=== PATIENT | male | born 1990 | race American Indian/Alaskan Native ===

== ENCOUNTER 2020-06-13 15:44 | Inpatient (IN) | payer OTHER ==
[2020-06-13] MEDS ORDERED: ONDANSETRON 4 MG ODT TAB ONE (15:53)
--- NOTE | 2020-06-13 15:53 | Event Note ---
ED Screening Note Date of service: 06/13/20 ED Screening Note: c/o N/V x 2-3 days hx of DM, not currently taking metformin hx of gastroparesis no abdominal tenderness to palpation on exam states +coffee ground emesis, unsure of hematemesis POC glucose = >500 +chills This initial assessment/diagnostic orders/clinical plan/treatment(s) is/are subject to change based on patients health status, clinical progression and re- assessment by fellow clinical providers in the ED. Further treatment and workup at subsequent clinical providers discretion. Patient/guardian urged not to elope from the ED as their condition may be serious if not clinically assessed and managed. Initial orders include: labs
[2020-06-13] MEDS ORDERED: ONDANSETRON 4 MG ODT TAB PO ONE (15:54)
[2020-06-13 16:22] LABS: Hematocrit 40.9 % (35.5-45.6); Hemoglobin 13.2 gm/dl (11.8-15.2); Mean Corpuscular HGB Conc 32 % (32-34); Mean Corpuscular Volume 74 fl (84-94); Platelet Count 371 K/mm3 (140-440); Red Cell Distribution Width 14.4 % (13.2-15.2)
[2020-06-13 16:38] LABS: Alanine Aminotransferase 19 units/L (7-56); Albumin 3.8 g/dL (3.9-5); BUN/Creatinine Ratio 25; Blood Urea Nitrogen 32 mg/dL (9-20); Calcium 10.2 mg/dL (8.4-10.2); Hemolysis Index 2
[2020-06-13 16:54] LABS: INR 1.13 (0.87-1.13)
[2020-06-13] MEDS ORDERED: INSULIN REGULAR, HUMAN 100 UNIT/ML 3ML VIAL IV ONE (17:16)
[2020-06-13] MEDS ORDERED: METOCLOPRAMIDE 10 MG/2 ML INJ IV ONE (17:16)
[2020-06-13] MEDS ORDERED: SODIUM CHLORIDE 0.9% 1000 ML 1,000 ML IV ONE (17:16)
[2020-06-13] MEDS ORDERED: SODIUM CHLORIDE 0.9% 1000 ML 2,000 ML IV ONE (17:16)
[2020-06-13] MEDS ORDERED: DEXTROSE 50% IN WATER (25GM) 50 ML SYRINGE IV PRN (17:17)
--- NOTE | 2020-06-13 17:24 | Emergency Department Report ---
ED General Adult HPI - General Chief complaint: Nausea/Vomiting/Diarrhea Stated complaint: HYPERGLYCEMIA PUI?: No Time Seen by Provider: 06/13/20 15:50 Source: patient, RN notes reviewed Mode of arrival: Ambulatory Limitations: No Limitations - History of Present Illness Initial comments: The patient was evaluated in the emergency department for symptoms described in the history of present illness. He/she was evaluated in the context of the global COVID-19 pandemic, which necessitated consideration that the patient might be at risk for infection with the virus that causes COVID-19. Institutional protocols and algorithms that pertain to the evaluation of patients at risk for COVID-19 are in a state of rapid change based on information released by regulatory bodies including the CDC and federal and state organizations. These policies and algorithms were followed during the patient's care in the emergency department. Please note that these policies, procedures and recommendations changed on a rapid basis. The patient is a 29-year-old gentleman. He is not known to myself previously. He has a history of obesity, diabetes, and gastroparesis. He moved here from [place] approximately 6 months ago. He does not have a local primary care doctor. He presents to the ER with a complaint of "my gastroparesis is acting up." He describes pain with nausea, vomiting, malaise, weakness and fatigue, present for the past 2 to 3 days. He denies headache, neck pain, chest pain, abdominal pain, he has mild shortness of breath, he has nausea, but vomiting has resolved, he reports that he is constipated, and he also reports a lack of energy. He states he is felt like this at least 3 times in the past. He was given nausea medication prior to my personal arrival,/evaluation, which he states improved his symptoms. -: Gradual, days(s) Consistency: constant Improves with: medication Worsens with: eating - Related Data Allergies Allergy/AdvReac Type Severity Reaction Status Date / Time No Known Allergies Allergy Unverified 06/13/20 15:53 ED Review of Systems ROS: Stated complaint: HYPERGLYCEMIA Other details as noted in HPI Constitutional: malaise, weakness. denies: diaphoresis, fever Eyes: denies: vision change ENT: denies: epistaxis Respiratory: denies: cough Cardiovascular: denies: chest pain Gastrointestinal: nausea, vomiting, constipation. denies: abdominal pain, diarrhea Genitourinary: denies: dysuria Musculoskeletal: denies: back pain Skin: denies: lesions Neurological: weakness ED Past Medical Hx - Past Medical History Previous Medical History?: Yes Hx Diabetes: Yes - Surgical History Past Surgical History?: No ED Physical Exam - General Limitations: No Limitations General appearance: alert, in no apparent distress, obese - Head Head exam: Present: atraumatic, normocephalic - Eye Eye exam: Present: normal appearance, EOMI. Absent: nystagmus - ENT ENT exam: Present: normal orophraynx, mucous membranes dry, normal external ear exam - Neck Neck exam: Present: normal inspection, full ROM. Absent: tenderness, meningismus - Respiratory Respiratory exam: Present: normal lung sounds bilaterally. Absent: respiratory distress, wheezes, rales, rhonchi, stridor, decreased breath sounds - Cardiovascular Cardiovascular Exam: Present: normal rhythm, tachycardia, normal heart sounds. Absent: systolic murmur, diastolic murmur, rubs, gallop - GI/Abdominal GI/Abdominal exam: Present: soft. Absent: distended, tenderness, guarding, rebound, rigid, pulsatile mass - Rectal Rectal exam: Present: deferred - Extremities Exam Extremities exam: Present: normal inspection, full ROM, other (2+ pulses noted in the bilateral upper and lower extremities. There is no palpable cord. negative Homans sign. Muscular compartments are soft. The pelvis is stable.). Absent: pedal edema, joint swelling, calf tenderness - Back Exam Back exam: Present: normal inspection, full ROM. Absent: tenderness, CVA tenderness (R), CVA tenderness (L), paraspinal tenderness, vertebral tenderness - Neurological Exam Neurological exam: Present: alert, oriented X3, normal gait, other (No facial droop. Tongue midline. Extraocular movements intact bilaterally. Facial sensation intact to light touch in V1, V2, V3 distribution bilaterally. 5 and a 5 strength in 4 extremities. Sensation intact to light touch in 4 extremities.). Absent: motor sensory deficit - Skin Skin exam: Present: warm, dry, intact, normal color. Absent: rash ED Course Vital Signs 06/13/20 17:40 Pulse Rate 131 H Respiratory 16 Rate Blood Pressure 139/91 [Right] O2 Sat by Pulse 99 Oximetry ED Medical Decision Making - Lab Data Result diagrams: 06/13/20 16:00 06/13/20 16:00 Lab Results 06/13/20 06/13/20 06/13/20 Range/Units 16:00 16:00 16:00 WBC 22.7 H (4.5-11.0) K/mm3 RBC 5.50 H (3.65-5.03) M/mm3 Hgb 13.2 (11.8-15.2) gm/dl Hct 40.9 (35.5-45.6) % MCV 74 L (84-94) fl MCH 24 L (28-32) pg MCHC 32 (32-34) % RDW 14.4 (13.2-15.2) % Plt Count 371 (140-440) K/mm3 PT 14.7 (12.2-14.9) Sec. INR 1.13 (0.87-1.13) APTT 28.0 (24.2-36.6) Sec. VBG pH (7.320-7.420) Sodium 135 L (137-145) mmol/L Potassium 4.5 (3.6-5.0) mmol/L Chloride 87.4 L (98-107) mmol/L Carbon Dioxide 14 L (22-30) mmol/L Anion Gap 38 mmol/L BUN 32 H (9-20) mg/dL Creatinine 1.3 (0.8-1.3) mg/dL Estimated GFR > 60 ml/min BUN/Creatinine Ratio 25 % Glucose 778 H* (75-100) mg/dL Calcium 10.2 (8.4-10.2) mg/dL Total Bilirubin 0.40 (0.1-1.2) mg/dL AST 9 (5-40) units/L ALT 19 (7-56) units/L Alkaline Phosphatase 210 H (35-129) units/L Total Protein 9.3 H (6.3-8.2) g/dL Albumin 3.8 L (3.9-5) g/dL Albumin/Globulin Ratio 0.7 % 06/13/20 Range/Units 16:00 WBC (4.5-11.0) K/mm3 RBC (3.65-5.03) M/mm3 Hgb (11.8-15.2) gm/dl Hct (35.5-45.6) % MCV (84-94) fl MCH (28-32) pg MCHC (32-34) % RDW (13.2-15.2) % Plt Count (140-440) K/mm3 PT (12.2-14.9) Sec. INR (0.87-1.13) APTT (24.2-36.6) Sec. VBG pH 7.340 (7.320-7.420) Sodium (137-145) mmol/L Potassium (3.6-5.0) mmol/L Chloride (98-107) mmol/L Carbon Dioxide (22-30) mmol/L Anion Gap mmol/L BUN (9-20) mg/dL Creatinine (0.8-1.3) mg/dL Estimated GFR ml/min BUN/Creatinine Ratio % Glucose (75-100) mg/dL Calcium (8.4-10.2) mg/dL Total Bilirubin (0.1-1.2) mg/dL AST (5-40) units/L ALT (7-56) units/L Alkaline Phosphatase (35-129) units/L Total Protein (6.3-8.2) g/dL Albumin (3.9-5) g/dL Albumin/Globulin Ratio % Vital Signs 06/13/20 17:40 Pulse Rate 131 H Respiratory 16 Rate Blood Pressure 139/91 [Right] O2 Sat by Pulse 99 Oximetry - EKG Data -: EKG Interpreted by Pa EKG shows normal: sinus rhythm Rate: tachycardia - EKG Data When compared to previous EKG there are: previous EKG unavailable 06/13/20 17:27 Sinus rhythm, tachycardia, 129 bpm, normal axis, high left ventricular voltage, QTC is prolonged, the EKG is abnormal, the EKG is not a STEMI. There is no prior EKG available for comparison - Radiology Data Radiology results: pending, report reviewed, image reviewed X-ray of the chest is negative for acute findings. - Medical Decision Making Differential diagnosis, including but not limited to: Dehydration, diabetic ketoacidosis, hyperosmolar state, gastroparesis, electrolyte derangement Assessment and plan: 29-year-old gentleman with known history of diabetes, gastroparesis, obesity, unknown hemoglobin A1c, presenting with tachycardia, tachypnea, dry mucous membranes, hyperglycemia, and anion gap acidosis, suggestive of diabetic ketoacidosis. Leukocytosis is appreciated, abdomen soft and benign, without rebound, guarding or peritoneal signs. Denies cough, fever, loss of taste, loss of smell, and dysuria, do not suspect invasive bacterial illness. I have appreciated the patient rules in for systemic inflammatory response syndrome. However, we do not suspect invasive bacterial illness at this time, his leukocytosis and abnormal vital signs are likely a stress reaction to his underlying metabolic crisis. He was given a cup of ice water which he was able to drink without difficulty. He meets criteria for hospitalization secondary to his acute diabetic ketoacido sis metabolic crisis. Start IV fluids, obtain EKG, x-ray of the chest, initiate insulin drip. Patient is amenable to hospitalization. Dr Daren Salinas to admit/ assume care Critical Care Time: Yes Critical care time in (mins) excluding proc time.: 35 Critical care attestation.: If time is entered above; I have spent that time in minutes in the direct care of this critically ill patient, excluding procedure time. ED Disposition Clinical Impression: DKA (diabetic ketoacidoses), Dehydration, Obesity, Noncompliance Disposition: DC-09 OP ADMIT IP TO THIS HOSP Is pt being admited?: Yes Does the pt Need Aspirin: No Condition: Serious Instructions: Diabetic Ketoacidosis (ED)
--- NOTE | 2020-06-13 17:24 | History and Physical Report ---
History of Present Illness Chief complaint: I feel sick History of present illness: 29 YO Male with DM complicated by Gastroparesis, Noncompliance presents to ED for evaluation. Patient states that he has been "feeling sick" over the past 2 to 3 days with worsening symptoms over the past 1 day. Patient denies noncom pliance with antihyperglycemic medication. Patient acknowledges nausea, multiple episodes of vomiting, weakness, polydipsia, polyuria. Patient transported to [facility] via private vehicle for further care and evaluation of the aforementioned symptoms. Patient seen and evaluated in the emergency departm ent. All lab and imaging studies reviewed. Patient found to have clinical symptoms as well as lab findings consistent with diabetic ketoacidosis, systemic laboratories response syndrome, as well as metabolic acidosis. Patient admitted to ICU and initiated on DKA protocol. Patient also treated with empiric IV antibiotic dose x1. Patient denies fever, chills, chest pain, palpitations, productive cough, skin rash, recent ill contacts, or known exposure to COVID-19. No prior admission for review. All medication listed at time of admission has been reconciled. Past History Past Medical History: diabetes Past Surgical History: No surgical history, Other (Reviewed) Social history: single. denies: smoking, alcohol abuse, prescription drug abuse Family history: diabetes, hypertension Medications and Allergies Allergies Allergy/AdvReac Type Severity Reaction Status Date / Time No Known Allergies Allergy Unverified 06/13/20 15:53 Active Meds: Active Medications Dextrose (D50w (25gm) Syringe) 0 ml IV Q30MIN PRN; Protocol PRN Reason: Hypoglycemia Sodium Chloride (Nacl 0.9% 1000 Ml) 1,000 mls @ 999 mls/hr IV BOLUS ONE Stop: 06/13/20 18:16 Insulin Human Regular 100 (units/ Sodium Chloride) 100 mls @ 1 mls/hr IV TITR CORBY; Protocol Potassium Chloride/Dextrose/Sod Cl (D5w/0.45% Nacl/Kcl 20 Meq) 20 meq in 1,000 mls @ 125 mls/hr IV DIRECT CORBY Sodium Chloride (Sodium Chloride Flush Syringe 10 Ml) 10 ml IV PRN NR Stop: 06/13/20 23:59 Review of Systems Constitutional: no weight loss, no fever Ears, nose, mouth and throat: no ear pain, no tinnitis, no nose pain, no sinus pressure Cardiovascular: no chest pain, no palpitations, no edema, no syncope, no shortness of breath Gastrointestinal: nausea, vomiting, no abdominal pain, no constipation, no change in bowel habits, no hematemesis, no coffee ground emesis Genitourinary Male: no hematuria, no flank pain, no discharge, no urinary frequency, no urinary hesitancy Rectal: no pain, no incontinence, no bleeding Musculoskeletal: no neck stiffness, no neck pain, no shooting arm pain, no arm numbness/tingling Integumentary: no rash, no pruritis, no redness, no sores, no jaundice Neurological: no head injury, no paralysis, no weakness, no syncope, no tremors Psychiatric: no anxiety, no change in sleep habits, no sleep disturbances, no hypersomnia, no suicidal ideation Endocrine: excessive thirst, polydipsia, polyuria, high blood sugars, no excessive sweating, no weight change Hematologic/Lymphatic: no easy bruising, no easy bleeding Allergic/Immunologic: no urticaria, no allergic rhinitis, no wheezing Exam - Constitutional General appearance: Present: mild distress - EENT Eyes: Present: PERRL ENT: hearing intact, clear oral mucosa, other (Oral mucosa dry) - Neck Neck: Present: supple, normal ROM - Respiratory Respiratory effort: normal Respiratory: bilateral: CTA - Cardiovascular Rhythm: other (Tachycardia) Heart Sounds: Present: S1 & S2. Absent: rub, click - Extremities Extremities: pulses symmetrical, No edema Peripheral Pulses: within normal limits - Abdominal General gastrointestinal: Present: soft, non-tender, non-distended, normal bowel sounds Male genitourinary: Present: normal - Integumentary Integumentary: Present: dry, clammy, decreased turgor - Musculoskeletal Musculoskeletal: generalized weakness - Psychiatric Psychiatric: appropriate mood/affect, intact judgment & insight - Neurologic Neurologic: CNII-XII intact, moves all extremities Results - Labs CBC & Chem 7: 06/13/20 16:00 06/13/20 19:04 Labs: Abnormal lab results 06/13/20 06/13/20 Range/Units 16:00 16:00 WBC 22.7 H (4.5-11.0) K/mm3 RBC 5.50 H (3.65-5.03) M/mm3 MCV 74 L (84-94) fl MCH 24 L (28-32) pg Sodium 135 L (137-145) mmol/L Chloride 87.4 L (98-107) mmol/L Carbon Dioxide 14 L (22-30) mmol/L BUN 32 H (9-20) mg/dL Glucose 778 H* (75-100) mg/dL Alkaline Phosphatase 210 H (35-129) units/L Total Protein 9.3 H (6.3-8.2) g/dL Albumin 3.8 L (3.9-5) g/dL Assessment and Plan - Patient Problems (1) DKA (diabetic ketoacidoses) Current Visit: No Status: Acute Qualifiers: Diabetes mellitus type: type 1 Plan to address problem: DKA protocol: Admit to ICU, insulin drip, IV fluid resuscitation therapy, monitor urine output every shift, serial BMP to monitor anion gap, potassium repletion as per protocol: Monitor urine output every shift. (2) Metabolic acidosis Current Visit: Yes Status: Acute Plan to address problem: IV fluid resuscitation therapy, IV bicarbonate therapy, supportive care, BMP, repeat BMP in a.m. (3) Obesity hypoventilation syndrome Current Visit: Yes Status: Acute Plan to address problem: Supplemental oxygen, pulse oximetry, nebulizer therapy, balanced diet, increase physical activity at discharge, outpatient pulmonary follow-up for sleep study (4) Systemic inflammatory response syndrome Current Visit: Yes Status: Acute Plan to address problem: Empiric IV antibiotic therapy x1 dose, CBC, CMP, treat DKA, repeat CBC in a.m. No source of infection identified. (5) Noncompliance Current Visit: No Status: Acute Plan to address problem: patient counseled. Patient acknowledges understanding increased risk of worsening symptoms, medical complications, and even if future noncompliance. (6) DVT prophylaxis Current Visit: Yes Status: Acute Plan to address problem: SCD to bilateral lower extremities while in bed, prophylactic anticoagulation
[2020-06-13] MEDS ORDERED: SODIUM BICARB 8.4% 50 MEQ/50 ML SYRINGE IV SCH (17:30)
[2020-06-13 17:34] LABS: Total Cells Counted 100
[2020-06-13 17:35] LABS: Anisocytosis Few; Basophils % (Manual) 0 % (0.0-1.8); Eosinophils % (Manual) 0 % (0.0-4.3); Hypochromasia 1+
[2020-06-13 17:56] LABS: Bilirubin,Urine NEG (Negative); Blood,Urine SM (Negative); Color,Urine Yellow (Yellow); WBC,Urine < 1.0 /HPF (0.0-6.0)
--- NOTE | 2020-06-13 17:58 | XRay Report ---
CHEST 1 VIEW 06/13/2020 4:45 PM INDICATION / CLINICAL INFORMATION: Weakness, DKA, dyspnea. COMPARISON: None available. FINDINGS: SUPPORT DEVICES: None. HEART / MEDIASTINUM: No significant abnormality. LUNGS / PLEURA: No significant pulmonary or pleural abnormality. No pneumothorax. ADDITIONAL FINDINGS: No significant additional findings. IMPRESSION: 1. No acute abnormality of the chest. Signer Name: Jmua Butt MD Signed: 06/13/2020 5:54 PM Workstation Name: [id number]
[2020-06-13] MEDS ORDERED: D5W/0.45% NACL/KCL 20 MEQ 20 MEQ/1,000 ML BAG IV SCH (18:00)
[2020-06-13 18:12] LABS: BUN/Creatinine Ratio 25; Blood Urea Nitrogen 33 mg/dL (9-20); Calcium 10.2 mg/dL (8.4-10.2); Hemolysis Index 4
[2020-06-13] MEDS: INSULIN REGULAR, HUMAN 100 UNITS in SODIUM CHLORIDE 0.9% 99 ML IV SCH (18:53)
[2020-06-13 19:35] LABS: BUN/Creatinine Ratio 26; Blood Urea Nitrogen 31 mg/dL (9-20); Calcium 9.6 mg/dL (8.4-10.2); Hemolysis Index 17
[2020-06-13] MEDS ORDERED: SODIUM CHLORIDE 0.9% 1000 ML 1,000 ML ONE (21:09)
[2020-06-13 21:54] LABS: BUN/Creatinine Ratio 28; Blood Urea Nitrogen 31 mg/dL (9-20); Calcium 9.8 mg/dL (8.4-10.2); Hemolysis Index 12
[2020-06-13] MEDS: HEPARIN 5,000 UNIT/1 ML VIAL SUB-Q SCH (22:50)
[2020-06-13] MEDS ORDERED: LORazepam 2 MG/ML VIAL IM PRN (22:54)
[2020-06-13] MEDS: SODIUM CHLORIDE 0.9% 1000 ML 1,000 ML IV SCH (23:20)
[2020-06-13] MEDS ORDERED: ONDANSETRON 4 MG/2 ML INJ IV ONE (23:20)
[2020-06-14] MEDS: NICOTINE 21 MG/24 HR PATCH TD SCH ×2 (00:23→09:05)
[2020-06-14 01:09] LABS: BUN/Creatinine Ratio 31; Blood Urea Nitrogen 31 mg/dL (9-20); Calcium 9.4 mg/dL (8.4-10.2); Hemolysis Index 2
[2020-06-14] MEDS: INSULIN REGULAR, HUMAN 100 UNITS in SODIUM CHLORIDE 0.9% 99 ML IV SCH (06:15)
[2020-06-14] MEDS: SODIUM CHLORIDE 0.9% 1000 ML 1,000 ML IV SCH (06:16)
[2020-06-14 06:47] LABS: BUN/Creatinine Ratio 31; Blood Urea Nitrogen 31 mg/dL (9-20); Calcium 9.6 mg/dL (8.4-10.2); Hemolysis Index 0
[2020-06-14] MEDS: ONDANSETRON 4 MG/2 ML INJ IV PRN (08:18)
--- NOTE | 2020-06-14 09:00 | Progress Note ---
Assessment and Plan Assessment and plan: -- DKA (diabetic ketoacidoses) Current Visit: No Status: Acute Plan to address problem: Continue DKA pathway , insulin drip , IV fluids Continue n.p.o. status Anion gap 21, closely monitor Will start diet once anion gap is completely closed -- Metabolic acidosis Current Visit: Yes Status: Acute Plan to address problem: IV fluid resuscitation therapy, IV bicarbonate therapy, Closely monitor --Hyponatremia; pseudohyponatremia; Current Visit: Yes Status: Acute Plan to address problem: present on admission, secondary to severe hyper glycemia Significantly improved, closely monitor electrolytes --Morbid obesity BMI 42.3 Current Visit: Yes Status: Acute Plan to address problem: Patient needs nutrition consult Lifestyle changes, dietary modification Exercise as tolerated and weight reduction Patient would benefit from outpatient bariatric surgical consultation For weight reduction program when medically stable --Systemic inflammatory response syndrome Current Visit: Yes Status: Acute Plan to address problem: Continue empiric antibiotics, follow cultures --Medical noncompliance Current Visit: No Status: Acute Plan to address problem: patient counseled. Strongly advised to comply with medications diet and follow- up visits Patient has social and financial issues. Case management to assist with DC planning -- DVT prophylaxis Current Visit: Yes Status: Acute Plan to address problem: SCD and heparin subcu History Interval history: I have seen and examined the patient in the ICU this morning Patient's chart and medications reviewed Admitted with DKA, on DKA pathway insulin drip Patient's blood sugars are reasonable level, anion gap still high Continue current management Patient feels thirsty, wants some food Vital signs noted Hospitalist Physical - Constitutional Vitals: Temp Pulse Resp BP Pulse Ox 98.2 F 133 H 20 149/98 94 06/14/20 04:00 06/14/20 05:41 06/14/20 05:41 06/14/20 06:01 06/14/20 06:01 General appearance: Present: mild distress, well-nourished, obese (Morbidly obese) - EENT Eyes: Present: PERRL, EOM intact - Neck Neck: Present: supple, normal ROM - Respiratory Respiratory effort: normal Respiratory: bilateral: diminished, negative: rales, rhonchi, wheezing - Cardiovascular Rhythm: regular Heart Sounds: Present: S1 & S2 - Extremities Extremities: no ischemia, No edema - Abdominal General gastrointestinal: soft, non-tender, non-distended, normal bowel sounds - Integumentary Integumentary: Present: clear, warm - Psychiatric Psychiatric: appropriate mood/affect, cooperative - Neurologic Neurologic: CNII-XII intact, moves all extremities Results - Labs CBC & Chem 7: 06/13/20 16:00 06/14/20 09:42 Labs: Laboratory Last Values WBC 22.7 K/mm3 (4.5-11.0) H 06/13/20 16:00 RBC 5.50 M/mm3 (3.65-5.03) H 06/13/20 16:00 Hgb 13.2 gm/dl (11.8-15.2) 06/13/20 16:00 Hct 40.9 % (35.5-45.6) 06/13/20 16:00 MCV 74 fl (84-94) L 06/13/20 16:00 MCH 24 pg (28-32) L 06/13/20 16:00 MCHC 32 % (32-34) 06/13/20 16:00 RDW 14.4 % (13.2-15.2) 06/13/20 16:00 Plt Count 371 K/mm3 (140-440) 06/13/20 16:00 Add Manual Diff Complete 06/13/20 16:00 Total Counted 100 06/13/20 16:00 Seg Neuts % (Manual) 86.0 % (40.0-70.0) H 06/13/20 16:00 Band Neutrophils % 0 % 06/13/20 16:00 Lymphocytes % (Manual) 6.0 % (13.4-35.0) L 06/13/20 16:00 Reactive Lymphs % (Man) 0 % 06/13/20 16:00 Monocytes % (Manual) 8.0 % (0.0-7.3) H 06/13/20 16:00 Eosinophils % (Manual) 0 % (0.0-4.3) 06/13/20 16:00 Basophils % (Manual) 0 % (0.0-1.8) 06/13/20 16:00 Metamyelocytes % 0 % 06/13/20 16:00 Myelocytes % 0 % 06/13/20 16:00 Promyelocytes % 0 % 06/13/20 16:00 Blast Cells % 0 % 06/13/20 16:00 Nucleated RBC % Not Reportable 06/13/20 16:00 Seg Neutrophils # Man 19.5 K/mm3 (1.8-7.7) H 06/13/20 16:00 Band Neutrophils # 0.0 K/mm3 06/13/20 16:00 Lymphocytes # (Manual) 1.4 K/mm3 (1.2-5.4) 06/13/20 16:00 Abs React Lymphs (Man) 0.0 K/mm3 06/13/20 16:00 Monocytes # (Manual) 1.8 K/mm3 (0.0-0.8) H 06/13/20 16:00 Eosinophils # (Manual) 0.0 K/mm3 (0.0-0.4) 06/13/20 16:00 Basophils # (Manual) 0.0 K/mm3 (0.0-0.1) 06/13/20 16:00 Metamyelocytes # 0.0 K/mm3 06/13/20 16:00 Myelocytes # 0.0 K/mm3 06/13/20 16:00 Promyelocytes # 0.0 K/mm3 06/13/20 16:00 Blast Cells # 0.0 K/mm3 06/13/20 16:00 WBC Morphology Not Reportable 06/13/20 16:00 Hypersegmented Neuts Not Reportable 06/13/20 16:00 Hyposegmented Neuts Not Reportable 06/13/20 16:00 Hypogranular Neuts Not Reportable 06/13/20 16:00 Smudge Cells Not Reportable 06/13/20 16:00 Toxic Granulation Not Reportable 06/13/20 16:00 Toxic Vacuolation Not Reportable 06/13/20 16:00 Dohle Bodies Not Reportable 06/13/20 16:00 Pelger-Huet Anomaly Not Reportable 06/13/20 16:00 Nancy Rods Not Reportable 06/13/20 16:00 Platelet Estimate Not Reportable 06/13/20 16:00 Clumped Platelets Not Reportable 06/13/20 16:00 Plt Clumps, EDTA Not Reportable 06/13/20 16:00 Large Platelets Not Reportable 06/13/20 16:00 Giant Platelets Not Reportable 06/13/20 16:00 Platelet Satelliting Not Reportable 06/13/20 16:00 Plt Morphology Comment Not Reportable 06/13/20 16:00 RBC Morphology Not Reportable 06/13/20 16:00 Dimorphic RBCs Not Reportable 06/13/20 16:00 Polychromasia Not Reportable 06/13/20 16:00 Hypochromasia 1+ 06/13/20 16:00 Poikilocytosis Not Reportable 06/13/20 16:00 Anisocytosis Few 06/13/20 16:00 Microcytosis Not Reportable 06/13/20 16:00 Macrocytosis Not Reportable 06/13/20 16:00 Spherocytes Not Reportable 06/13/20 16:00 Pappenheimer Bodies Not Reportable 06/13/20 16:00 Sickle Cells Not Reportable 06/13/20 16:00 Target Cells Not Reportable 06/13/20 16:00 Tear Drop Cells Not Reportable 06/13/20 16:00 Ovalocytes Not Reportable 06/13/20 16:00 Helmet Cells Not Reportable 06/13/20 16:00 [place] Bodies Not Reportable 06/13/20 16:00 [place] Rings Not Reportable 06/13/20 16:00 [place] Cells Not Reportable 06/13/20 16:00 Bite Cells Not Reportable 06/13/20 16:00 Crenated Cell Not Reportable 06/13/20 16:00 Elliptocytes Not Reportable 06/13/20 16:00 Acanthocytes (Spur) Not Reportable 06/13/20 16:00 Rouleaux Not Reportable 06/13/20 16:00 Hemoglobin C Crystals Not Reportable 06/13/20 16:00 Schistocytes Not Reportable 06/13/20 16:00 Malaria parasites Not Reportable 06/13/20 16:00 Jamar Bodies Not Reportable 06/13/20 16:00 Hem Pathologist Commnt No 06/13/20 16:00 PT 14.7 Sec. (12.2-14.9) 06/13/20 16:00 INR 1.13 (0.87-1.13) 06/13/20 16:00 APTT 28.0 Sec. (24.2-36.6) 06/13/20 16:00 VBG pH 7.340 (7.320-7.420) 06/13/20 16:00 Sodium 145 mmol/L (137-145) 06/14/20 04:39 Potassium 4.0 mmol/L (3.6-5.0) 06/14/20 04:39 Chloride 103.3 mmol/L (98-107) 06/14/20 04:39 Carbon Dioxide 25 mmol/L (22-30) 06/14/20 04:39 Anion Gap 21 mmol/L 06/14/20 04:39 BUN 31 mg/dL (9-20) H 06/14/20 04:39 Creatinine 1.0 mg/dL (0.8-1.3) 06/14/20 04:39 Estimated GFR > 60 ml/min 06/14/20 04:39 BUN/Creatinine Ratio 31 % 06/14/20 04:39 Glucose 288 mg/dL (75-100) H 06/14/20 04:39 POC Glucose 253 (70-105) H 06/14/20 07:52 Calcium 9.6 mg/dL (8.4-10.2) 06/14/20 04:39 Phosphorus 4.90 mg/dL (2.5-4.5) H 06/13/20 17:28 Magnesium 2.50 mg/dL (1.7-2.3) H 06/13/20 17:28 Magnesium 2.60 mg/dL (1.7-2.3) H 06/13/20 17:28 Total Bilirubin 0.40 mg/dL (0.1-1.2) 06/13/20 16:00 AST 9 units/L (5-40) 06/13/20 16:00 ALT 19 units/L (7-56) 06/13/20 16:00 Alkaline Phosphatase 210 units/L (35-129) H 06/13/20 16:00 Total Creatine Kinase 30 units/L (55-170) L 06/13/20 17:28 Total Protein 9.3 g/dL (6.3-8.2) H 06/13/20 16:00 Albumin 3.8 g/dL (3.9-5) L 06/13/20 16:00 Albumin/Globulin Ratio 0.7 % 06/13/20 16:00 TSH 0.726 mlU/mL (0.270-4.200) 06/13/20 17:28 Urine Color Yellow (Yellow) 06/13/20 Unknown Urine Turbidity Clear (Clear) 06/13/20 Unknown Urine pH 5.0 (5.0-7.0) 06/13/20 Unknown Ur Specific [place] 1.024 (1.003-1.030) 06/13/20 Unknown Urine Protein 30 mg/dl mg/dL (Negative) 06/13/20 Unknown Urine Glucose (UA) >=500 mg/dL (Negative) 06/13/20 Unknown Urine Ketones 80 mg/dL (Negative) 06/13/20 Unknown Urine Blood Sm (Negative) 06/13/20 Unknown Urine Nitrite Neg (Negative) 06/13/20 Unknown Urine Bilirubin Neg (Negative) 06/13/20 Unknown Urine Urobilinogen 2.0 mg/dL (<2.0) 06/13/20 Unknown Ur Leukocyte Esterase Neg (Negative) 06/13/20 Unknown Urine WBC (Auto) < 1.0 /HPF (0.0-6.0) 06/13/20 Unknown Urine RBC (Auto) 1.0 /HPF (0.0-6.0) 06/13/20 Unknown U Epithel Cells (Auto) < 1.0 /HPF (0-13.0) 06/13/20 Unknown Active Medications - Current Medications Current Medications: Generic Name Dose Route Start Last Admin Trade Name Freq PRN Reason Stop Dose Admin Dextrose 0 ml 06/13/20 17:17 D50w (25gm) Syringe IV Q30MIN PRN Hypoglycemia Protocol Heparin Sodium (Porcine) 5,000 unit 06/13/20 22:00 06/13/20 22:50 Heparin SUB-Q 5,000 unit Q12HR CORBY Administration Insulin Human Regular 100 100 mls @ 1 mls/hr 06/13/20 18:00 06/14/20 08:00 units/ Sodium Chloride IV 5 units/hr TITR CORBY 5 mls/hr Titration Protocol 1 UNITS/HR Potassium Chloride/Dextrose/Sod Cl 20 meq in 1,000 mls @ 125 mls/hr 06/13/20 18:00 D5w/0.45% Nacl/Kcl 20 Meq IV DIRECT CORBY Sodium Chloride 1,000 mls @ 150 mls/hr 06/13/20 17:30 06/14/20 06:16 Nacl 0.9% 1000 Ml IV 150 mls/hr DIRECT CORBY Administration Lorazepam 1 mg 06/13/20 22:54 Ativan IM Q4H PRN Agitation, anxiety Nicotine 21 mg 06/13/20 23:30 06/14/20 00:23 Habitrol TD 21 mg QDAY CORBY Administration Ondansetron HCl 4 mg 06/14/20 08:03 06/14/20 08:18 Zofran IV 4 mg Q8H PRN Administration Nausea And Vomiting Sodium Chloride 10 ml 06/13/20 22:00 06/13/20 22:52 Sodium Chloride Flush Syringe 10 Ml IV 10 ml BID CORBY Administration Sodium Chloride 10 ml 06/13/20 17:30 Sodium Chloride Flush Syringe 10 Ml IV PRN PRN LINE FLUSH
[2020-06-14] MEDS: HEPARIN 5,000 UNIT/1 ML VIAL SUB-Q SCH ×2 (09:05→21:48)
[2020-06-14 10:42] LABS: BUN/Creatinine Ratio 32; Blood Urea Nitrogen 32 mg/dL (9-20); Calcium 9.5 mg/dL (8.4-10.2); Hemolysis Index 2
[2020-06-14] MEDS: INSULIN NPH/REGULAR 70/30 INJ SUB-Q SCH ×3 (12:23→21:18)
[2020-06-14] MEDS: INSULIN LISPRO 100 UNIT/ML VIAL 3 mL SUB-Q SCH ×3 (12:23→21:52)
[2020-06-14] MEDS: hydrALAZINE 25 MG TAB PO SCH ×2 (14:39→21:47)
--- NOTE | 2020-06-14 15:13 | Event Note ---
Date: 06/14/20 Patient feels slightly better, blood sugars well controlled Anion gap closed, acidosis improved, patient has no new symptoms Start ADA diet, transition to long-acting insulin, DC insulin drip Diabetic education, nutrition education. Transfer out of ICU in 1 to 2 hours if stable
[2020-06-14] MEDS: NIFEdipine XL 30 MG TAB PO SCH (21:48)
[2020-06-15] MEDS: hydrALAZINE 25 MG TAB PO SCH ×3 (06:22→21:08)
[2020-06-15] MEDS: INSULIN NPH/REGULAR 70/30 INJ SUB-Q SCH ×2 (08:56→17:37)
[2020-06-15] MEDS: INSULIN LISPRO 100 UNIT/ML VIAL 3 mL SUB-Q SCH ×4 (08:56→23:02)
[2020-06-15] MEDS ORDERED: INSULIN NPH/REGULAR 70/30 INJ SUB-Q SCH (09:42)
[2020-06-15] MEDS: NICOTINE 21 MG/24 HR PATCH TD SCH (09:46)
[2020-06-15] MEDS: HEPARIN 5,000 UNIT/1 ML VIAL SUB-Q SCH ×3 (09:46→21:14)
[2020-06-15] MEDS: NIFEdipine XL 30 MG TAB PO SCH ×2 (09:47→21:06)
--- NOTE | 2020-06-15 09:48 | Progress Note ---
Assessment and Plan Assessment and plan: --Insulin-dependent diabetes mellitus; Current Visit: No Status: Acute . Plan to address problem: uncontrolled , increase Novolin 70/30 to 30 units twice a day Accu-Chek sliding scale coverage ADA diet Hemoglobin A1c 16.3 Diabetic education, nutrition education Supportive care --Medical noncompliance; Current Visit: No Status: Acute . Plan to address problem: Patient has been consuming a lot of sugary fruit juices since last night He reports that he is not able to tolerate the water Blood sugars are very high uncontrolled due to sugary drinks Strongly advised to comply with ADA diet --Right thigh abscess; Patient has never complained to any physician about this abscess Nurse found on her evaluation and requested wound care Wound care nurse consulted the surgery start IV antibiotics, surgery evaluated the patient Scheduled for I&D tomorrow -- s/p DKA (diabetic ketoacidoses) Current Visit: No Status: Acute . Plan to address problem: Improved -- Metabolic acidosis Current Visit: Yes Status: Acute Plan to address problem: IV fluid resuscitation therapy, IV bicarbonate therapy, Closely monitor --Hyponatremia; pseudohyponatremia; Current Visit: Yes Status: Acute Plan to address problem: present on admission, secondary to severe hyper glycemia Significantly improved, closely monitor electrolytes --Morbid obesity BMI 42.3 Current Visit: Yes Status: Acute Plan to address problem: Patient needs nutrition consult Lifestyle changes, dietary modification Exercise as tolerated and weight reduction Patient would benefit from outpatient bariatric surgical consultation For weight reduction program when medically stable --Systemic inflammatory response syndrome Current Visit: Yes Status: Acute Plan to address problem: Continue empiric antibiotics, follow cultures --Medical noncompliance Current Visit: No Status: Acute Plan to address problem: patient counseled. Strongly advised to comply with medications diet and follow- up visits Patient has social and financial issues. Case management to assist with DC planning -- DVT prophylaxis Current Visit: Yes Status: Acute Plan to address problem: SCD and heparin subcu Closely monitor the patient and adjust management as needed History Interval history: I have seen and examined the patient at the bedside this morning Patient's chart and medications reviewed Patient sugars are uncontrolled, as patient is consuming a lot of sugary fruit drinks He reports that he is not able to tolerate water with severe epigastric burning and pain Patient reports that he is able to tolerate fruit juices. And had a few drinks since morning Blood sugars are in upper 300s and 400s Patient strictly advised to comply with ADA diet No new complaints Vital signs noted Hospitalist Physical - Constitutional Vitals: Temp Pulse Resp BP Pulse Ox 97.3 F L 111 H 18 139/89 97 06/15/20 05:30 06/15/20 06:22 06/15/20 05:30 06/15/20 06:22 06/15/20 05:30 General appearance: Present: no acute distress, well-nourished, obese (Morbidly obese) - EENT Eyes: Present: PERRL, EOM intact - Neck Neck: Present: supple, normal ROM - Respiratory Respiratory effort: normal Respiratory: bilateral: diminished, negative: rales, rhonchi, wheezing - Cardiovascular Rhythm: regular Heart Sounds: Present: S1 & S2 - Extremities Extremities: no ischemia, No edema Extremity abnormal: other (Right medial thigh abscess) - Abdominal General gastrointestinal: soft, non-tender, non-distended, normal bowel sounds - Integumentary Integumentary: Present: clear, warm - Psychiatric Psychiatric: appropriate mood/affect, cooperative - Neurologic Neurologic: moves all extremities Results - Labs CBC & Chem 7: 06/13/20 16:00 06/14/20 09:42 Labs: Laboratory Last Values WBC 22.7 K/mm3 (4.5-11.0) H 06/13/20 16:00 RBC 5.50 M/mm3 (3.65-5.03) H 06/13/20 16:00 Hgb 13.2 gm/dl (11.8-15.2) 06/13/20 16:00 Hct 40.9 % (35.5-45.6) 06/13/20 16:00 MCV 74 fl (84-94) L 06/13/20 16:00 MCH 24 pg (28-32) L 06/13/20 16:00 MCHC 32 % (32-34) 06/13/20 16:00 RDW 14.4 % (13.2-15.2) 06/13/20 16:00 Plt Count 371 K/mm3 (140-440) 06/13/20 16:00 Add Manual Diff Complete 06/13/20 16:00 Total Counted 100 06/13/20 16:00 Seg Neuts % (Manual) 86.0 % (40.0-70.0) H 06/13/20 16:00 Band Neutrophils % 0 % 06/13/20 16:00 Lymphocytes % (Manual) 6.0 % (13.4-35.0) L 06/13/20 16:00 Reactive Lymphs % (Man) 0 % 06/13/20 16:00 Monocytes % (Manual) 8.0 % (0.0-7.3) H 06/13/20 16:00 Eosinophils % (Manual) 0 % (0.0-4.3) 06/13/20 16:00 Basophils % (Manual) 0 % (0.0-1.8) 06/13/20 16:00 Metamyelocytes % 0 % 06/13/20 16:00 Myelocytes % 0 % 06/13/20 16:00 Promyelocytes % 0 % 06/13/20 16:00 Blast Cells % 0 % 06/13/20 16:00 Nucleated RBC % Not Reportable 06/13/20 16:00 Seg Neutrophils # Man 19.5 K/mm3 (1.8-7.7) H 06/13/20 16:00 Band Neutrophils # 0.0 K/mm3 06/13/20 16:00 Lymphocytes # (Manual) 1.4 K/mm3 (1.2-5.4) 06/13/20 16:00 Abs React Lymphs (Man) 0.0 K/mm3 06/13/20 16:00 Monocytes # (Manual) 1.8 K/mm3 (0.0-0.8) H 06/13/20 16:00 Eosinophils # (Manual) 0.0 K/mm3 (0.0-0.4) 06/13/20 16:00 Basophils # (Manual) 0.0 K/mm3 (0.0-0.1) 06/13/20 16:00 Metamyelocytes # 0.0 K/mm3 06/13/20 16:00 Myelocytes # 0.0 K/mm3 06/13/20 16:00 Promyelocytes # 0.0 K/mm3 06/13/20 16:00 Blast Cells # 0.0 K/mm3 06/13/20 16:00 WBC Morphology Not Reportable 06/13/20 16:00 Hypersegmented Neuts Not Reportable 06/13/20 16:00 Hyposegmented Neuts Not Reportable 06/13/20 16:00 Hypogranular Neuts Not Reportable 06/13/20 16:00 Smudge Cells Not Reportable 06/13/20 16:00 Toxic Granulation Not Reportable 06/13/20 16:00 Toxic Vacuolation Not Reportable 06/13/20 16:00 Dohle Bodies Not Reportable 06/13/20 16:00 Pelger-Huet Anomaly Not Reportable 06/13/20 16:00 Nancy Rods Not Reportable 06/13/20 16:00 Platelet Estimate Not Reportable 06/13/20 16:00 Clumped Platelets Not Reportable 06/13/20 16:00 Plt Clumps, EDTA Not Reportable 06/13/20 16:00 Large Platelets Not Reportable 06/13/20 16:00 Giant Platelets Not Reportable 06/13/20 16:00 Platelet Satelliting Not Reportable 06/13/20 16:00 Plt Morphology Comment Not Reportable 06/13/20 16:00 RBC Morphology Not Reportable 06/13/20 16:00 Dimorphic RBCs Not Reportable 06/13/20 16:00 Polychromasia Not Reportable 06/13/20 16:00 Hypochromasia 1+ 06/13/20 16:00 Poikilocytosis Not Reportable 06/13/20 16:00 Anisocytosis Few 06/13/20 16:00 Microcytosis Not Reportable 06/13/20 16:00 Macrocytosis Not Reportable 06/13/20 16:00 Spherocytes Not Reportable 06/13/20 16:00 Pappenheimer Bodies Not Reportable 06/13/20 16:00 Sickle Cells Not Reportable 06/13/20 16:00 Target Cells Not Reportable 06/13/20 16:00 Tear Drop Cells Not Reportable 06/13/20 16:00 Ovalocytes Not Reportable 06/13/20 16:00 Helmet Cells Not Reportable 06/13/20 16:00 [place] Bodies Not Reportable 06/13/20 16:00 [place] Rings Not Reportable 06/13/20 16:00 [place] Cells Not Reportable 06/13/20 16:00 Bite Cells Not Reportable 06/13/20 16:00 Crenated Cell Not Reportable 06/13/20 16:00 Elliptocytes Not Reportable 06/13/20 16:00 Acanthocytes (Spur) Not Reportable 06/13/20 16:00 Rouleaux Not Reportable 06/13/20 16:00 Hemoglobin C Crystals Not Reportable 06/13/20 16:00 Schistocytes Not Reportable 06/13/20 16:00 Malaria parasites Not Reportable 06/13/20 16:00 Jamar Bodies Not Reportable 06/13/20 16:00 Hem Pathologist Commnt No 06/13/20 16:00 PT 14.7 Sec. (12.2-14.9) 06/13/20 16:00 INR 1.13 (0.87-1.13) 06/13/20 16:00 APTT 28.0 Sec. (24.2-36.6) 06/13/20 16:00 VBG pH 7.340 (7.320-7.420) 06/13/20 16:00 Sodium 146 mmol/L (137-145) H 06/14/20 09:42 Potassium 4.0 mmol/L (3.6-5.0) 06/14/20 09:42 Chloride 106.6 mmol/L (98-107) 06/14/20 09:42 Carbon Dioxide 25 mmol/L (22-30) 06/14/20 09:42 Anion Gap 18 mmol/L 06/14/20 09:42 BUN 32 mg/dL (9-20) H 06/14/20 09:42 Creatinine 1.0 mg/dL (0.8-1.3) 06/14/20 09:42 Estimated GFR > 60 ml/min 06/14/20 09:42 BUN/Creatinine Ratio 32 % 06/14/20 09:42 Glucose 252 mg/dL (75-100) H 06/14/20 09:42 POC Glucose 495 mg/dL (70-105) H 06/15/20 08:24 Hemoglobin A1c 16.3 % (4-6) H 06/13/20 17:28 Calcium 9.5 mg/dL (8.4-10.2) 06/14/20 09:42 Phosphorus 4.90 mg/dL (2.5-4.5) H 06/13/20 17:28 Magnesium 2.50 mg/dL (1.7-2.3) H 06/13/20 17:28 Magnesium 2.60 mg/dL (1.7-2.3) H 06/13/20 17:28 Total Bilirubin 0.40 mg/dL (0.1-1.2) 06/13/20 16:00 AST 9 units/L (5-40) 06/13/20 16:00 ALT 19 units/L (7-56) 06/13/20 16:00 Alkaline Phosphatase 210 units/L (35-129) H 06/13/20 16:00 Total Creatine Kinase 30 units/L (55-170) L 06/13/20 17:28 Total Protein 9.3 g/dL (6.3-8.2) H 06/13/20 16:00 Albumin 3.8 g/dL (3.9-5) L 06/13/20 16:00 Albumin/Globulin Ratio 0.7 % 06/13/20 16:00 TSH 0.726 mlU/mL (0.270-4.200) 06/13/20 17:28 Urine Color Yellow (Yellow) 06/13/20 Unknown Urine Turbidity Clear (Clear) 06/13/20 Unknown Urine pH 5.0 (5.0-7.0) 06/13/20 Unknown Ur Specific [place] 1.024 (1.003-1.030) 06/13/20 Unknown Urine Protein 30 mg/dl mg/dL (Negative) 06/13/20 Unknown Urine Glucose (UA) >=500 mg/dL (Negative) 06/13/20 Unknown Urine Ketones 80 mg/dL (Negative) 06/13/20 Unknown Urine Blood Sm (Negative) 06/13/20 Unknown Urine Nitrite Neg (Negative) 06/13/20 Unknown Urine Bilirubin Neg (Negative) 06/13/20 Unknown Urine Urobilinogen 2.0 mg/dL (<2.0) 06/13/20 Unknown Ur Leukocyte Esterase Neg (Negative) 06/13/20 Unknown Urine WBC (Auto) < 1.0 /HPF (0.0-6.0) 06/13/20 Unknown Urine RBC (Auto) 1.0 /HPF (0.0-6.0) 06/13/20 Unknown U Epithel Cells (Auto) < 1.0 /HPF (0-13.0) 06/13/20 Unknown Palomares/IV: IV Catheter Type [Left Forearm INT / Saline Lock ] Active Medications - Current Medications Current Medications: Generic Name Dose Route Start Last Admin Trade Name Freq PRN Reason Stop Dose Admin Dextrose 0 ml 06/13/20 17:17 D50w (25gm) Syringe IV Q30MIN PRN Hypoglycemia Protocol Heparin Sodium (Porcine) 5,000 unit 06/13/20 22:00 06/14/20 21:48 Heparin SUB-Q 5,000 unit Q12HR CORBY Administration Hydralazine HCl 50 mg 06/14/20 15:00 06/15/20 06:22 Apresoline PO 50 mg Q8HR CORBY Administration Sodium Chloride 1,000 mls @ 150 mls/hr 06/13/20 17:30 06/14/20 06:16 Nacl 0.9% 1000 Ml IV 150 mls/hr DIRECT CORBY Administration Insulin Human Isoph/Insulin Regular 10 unit 06/15/20 09:41 Humulin 70/30 SUB-Q 06/15/20 09:42 ONCE ONE Insulin Human Isoph/Insulin Regular 30 unit 06/15/20 09:43 Humulin 70/30 SUB-Q BIDDIAB CORBY Insulin Human Lispro 0 unit 06/14/20 12:00 06/15/20 08:56 Humalog SUB-Q 8 unit ACHS CORBY Administration Protocol Labetalol HCl 10 mg 06/14/20 18:03 Labetalol IV Q4H PRN Hypertension Lorazepam 1 mg 06/13/20 22:54 Ativan IM Q4H PRN Agitation, anxiety Nicotine 21 mg 06/13/20 23:30 06/14/20 09:05 Habitrol TD 21 mg QDAY CORBY Administration Nifedipine 30 mg 06/14/20 22:00 06/14/20 21:48 Procardia Xl PO 30 mg Q12HR CORBY Administration Ondansetron HCl 4 mg 06/14/20 08:03 06/14/20 08:18 Zofran IV 4 mg Q8H PRN Administration Nausea And Vomiting Sodium Chloride 10 ml 06/13/20 22:00 06/14/20 21:52 Sodium Chloride Flush Syringe 10 Ml IV 10 ml BID CORBY Administration Sodium Chloride 10 ml 06/13/20 17:30 Sodium Chloride Flush Syringe 10 Ml IV PRN PRN LINE FLUSH
[2020-06-15] MEDS ORDERED: INSULIN NPH/REGULAR 70/30 INJ SUB-Q NR (10:00)
--- NOTE | 2020-06-15 10:55 | Consultation ---
History of Present Illness Consult date: 06/15/02 - History of present illness History of present illness: 29 yo diabetic male with a right thigh abscess. Past History Past Medical History: diabetes Past Surgical History: No surgical history, Other (Reviewed) Social history: single. denies: smoking, alcohol abuse, prescription drug abuse Family history: diabetes, hypertension Medications and Allergies Allergies Allergy/AdvReac Type Severity Reaction Status Date / Time No Known Allergies Allergy Unverified 06/13/20 15:53 Home Medications Medication Instructions Recorded Confirmed Last Taken Type Metformin HCl 500 mg PO BID 06/14/20 06/14/20 Unknown History Active Meds: Active Medications Dextrose (D50w (25gm) Syringe) 0 ml IV Q30MIN PRN; Protocol PRN Reason: Hypoglycemia Heparin Sodium (Porcine) (Heparin) 5,000 unit SUB-Q Q12HR [facility] Last Admin: 06/15/20 09:46 Dose: 5,000 unit Documented by: Hydralazine HCl (Apresoline) 50 mg PO Q8HR [facility] Last Admin: 06/15/20 06:22 Dose: 50 mg Documented by: Sodium Chloride (Nacl 0.9% 1000 Ml) 1,000 mls @ 150 mls/hr IV DIRECT [facility] Last Admin: 06/14/20 06:16 Dose: 150 mls/hr Documented by: Insulin Human Isoph/Insulin Regular (Humulin 70/30) 10 unit SUB-Q ONCE NR Stop: 06/15/20 12:00 Last Admin: 06/15/20 10:32 Dose: 10 unit Documented by: Insulin Human Isoph/Insulin Regular (Humulin 70/30) 30 unit SUB-Q BIDDIAB [facility] Insulin Human Lispro (Humalog) 0 unit SUB-Q ACHS [facility]; Protocol Last Admin: 06/15/20 08:56 Dose: 8 unit Documented by: Labetalol HCl (Labetalol) 10 mg IV Q4H PRN PRN Reason: Hypertension Lorazepam (Ativan) 1 mg IM Q4H PRN PRN Reason: Agitation, anxiety Nicotine (Habitrol) 21 mg TD QDAY [facility] Last Admin: 06/15/20 09:46 Dose: Not Given Documented by: Nifedipine (Procardia Xl) 30 mg PO Q12HR [facility] Last Admin: 06/15/20 09:47 Dose: 30 mg Documented by: Ondansetron HCl (Zofran) 4 mg IV Q8H PRN PRN Reason: Nausea And Vomiting Last Admin: 06/14/20 08:18 Dose: 4 mg Documented by: Sodium Chloride (Sodium Chloride Flush Syringe 10 Ml) 10 ml IV BID [facility] Last Admin: 06/15/20 09:47 Dose: 10 ml Documented by: Sodium Chloride (Sodium Chloride Flush Syringe 10 Ml) 10 ml IV PRN PRN PRN Reason: LINE FLUSH Review of Systems All systems: negative (none) Exam Vital Signs Temp Pulse Resp BP Pulse Ox 98.1 F 136 H 18 167/111 96 06/13/20 15:55 06/13/20 15:55 06/13/20 15:55 06/13/20 15:55 06/13/20 15:55 - General physical appearance Positive: well developed, well nourished, no distress - Eyes Positive: PERRL, normal occular movement - ENT Positive: normal pinna, normal nares, normal mucosa, no hearing loss, no congestion - Neck Positive: no masses, no bruits, trachea midline, no venous distension - Respiratory Positive: normal expansion, normal respiratory effort, clear to auscultation - Cardiovascular Rhythm: regular Heart Sounds: Present: S1 & S2. Absent: rub, click - Extremities Extremities: no ischemia, pulses symmetrical, No edema - Breasts Breasts: normal, no mass, no skin changes - Abdomen Abdomen: Present: soft, bowel sounds normal. Absent: tender, distended Hernia: none - Genitourinary Male Genitourinary: normal Female Genitourinary: normal - Integumentary other (There is a 4.5 X 4.5 cm abscess of the right medial thigh. The skin overlying the central portion of the abscess is necrotic and weeping purulent fluid.) - Neurologic Neurologic: alert and oriented to time, place and person, motor strength and sensation are grossly intact - Musculoskeletal normal gait, normal posture - Psychiatric Psychiatric: appropriate mood/affect, intact judgment & insight Results - Labs 06/13/20 16:00 06/14/20 09:42 Abnormal lab results 06/13/20 06/14/20 06/14/20 Range/Units 17:28 11:12 12:10 POC Glucose 235 H 249 H (70-105) mg/dL Hemoglobin A1c 16.3 H (4-6) % 06/14/20 06/14/2006/15/20 Range/Units 16:06 21:20 08:24 POC Glucose 398 H 327 H 495 H (70-105) mg/dL Hemoglobin A1c (4-6) % Diabetes panel 06/13/20 Range/Units 17:28 Hemoglobin A1c 16.3 H (4-6) % Assessment and Plan - Patient Problems (1) Abscess of right thigh Current Visit: Yes Status: Acute Plan to address problem: 1) NPO after MN 2) I&D tomorrow 3) Strict management of DM 4) Broad spectrum IV antibiotics
[2020-06-15] MEDS: ONDANSETRON 4 MG/2 ML INJ IV PRN (20:21)
[2020-06-15] MEDS: SODIUM CHLORIDE 0.9% 1000 ML 1,000 ML IV SCH (20:50)
[2020-06-15] MEDS: VANCOMYCIN 2,000 MG in SODIUM CHLORIDE 0.9% 500 ML 500 ML IV SCH (20:50)
[2020-06-16] MEDS ORDERED: LIDOCAINE-MPF (1%) 10 MG/1 ML VIAL 5 ML INFILTRATI ONE
[2020-06-16] MEDS: PIPERACIL/TAZOBACTA 4.5/NS 100 4.5 GM/100 ML VIAL IV SCH ×4 (03:43→17:42)
[2020-06-16] MEDS: VANCOMYCIN 2,000 MG in SODIUM CHLORIDE 0.9% 500 ML 500 ML IV SCH ×3 (03:44→22:53)
[2020-06-16] MEDS: hydrALAZINE 25 MG TAB PO SCH ×3 (06:46→22:55)
[2020-06-16] MEDS: INSULIN NPH/REGULAR 70/30 INJ SUB-Q SCH ×2 (08:33→17:42)
[2020-06-16] MEDS: INSULIN LISPRO 100 UNIT/ML VIAL 3 mL SUB-Q SCH ×4 (08:36→23:28)
[2020-06-16] MEDS: NICOTINE 21 MG/24 HR PATCH TD SCH (09:56)
--- NOTE | 2020-06-16 09:57 | Progress Note ---
Assessment and Plan Assessment and plan: --Right thigh abscess; Surgery and wound care evaluated the patient Scheduled for incision drainage procedure Continue antibiotics vancomycin and surgery evaluated the patient Scheduled for I&D today, follow cultures --Sepsis due to right thigh abscess Current Visit: No Status: Acute . Plan to address problem: Leukocytosis, tachycardia, abscess Continue antibiotics, follow cultures --Insulin-dependent diabetes mellitus; Current Visit: No Status: Acute . Plan to address problem: uncontrolled , increase Novolin 70/30 to 30 units twice a day Accu-Chek sliding scale coverage ADA diet Hemoglobin A1c 16.3 Diabetic education, nutrition education Supportive care --Medical noncompliance; Current Visit: No Status: Acute . Plan to address problem: Patient has been consuming a lot of sugary fruit juices since last night He reports that he is not able to tolerate the water Blood sugars are very high uncontrolled due to sugary drinks Strongly advised to comply with ADA diet -- s/p DKA (diabetic ketoacidoses) Current Visit: No Status: Acute . Plan to address problem: Improved -- Metabolic acidosis Current Visit: Yes Status: Acute Plan to address problem: IV fluid resuscitation therapy, IV bicarbonate therapy, Closely monitor --Hyponatremia; pseudohyponatremia; Current Visit: Yes Status: Acute Plan to address problem: Resolved, mild hypernatremia Change IV fluids to half-normal saline --Morbid obesity BMI 42.3 Current Visit: Yes Status: Acute Plan to address problem: Patient needs nutrition consult Lifestyle changes, dietary modification Exercise as tolerated and weight reduction Patient would benefit from outpatient bariatric surgical consultation For weight reduction program when medically stable --Medical noncompliance Current Visit: No Status: Acute Plan to address problem: patient counseled. Strongly advised to comply with medications diet and follow- up visits Patient has social and financial issues. Case management to assist with DC planning -- DVT prophylaxis Current Visit: Yes Status: Acute Plan to address problem: SCD and heparin subcu Closely monitor the patient and adjust management as needed History Interval history: I have seen and examined the patient in his room this morning Patient's chart and current medications reviewed Patient is scheduled for incision and drainage of the thigh abscess per Dr. Taylor Patient is receiving IV antibiotics Complains of mild discomfort and pain vital signs noted Hospitalist Physical - Constitutional Vitals: Temp Pulse Resp BP Pulse Ox 98.9 F 106 H 20 142/101 96 06/16/20 06:54 06/16/20 06:54 06/16/20 06:54 06/16/20 06:54 06/16/20 06:54 General appearance: Present: no acute distress, well-nourished, obese (Morbidly obese) - EENT Eyes: Present: PERRL, EOM intact - Neck Neck: Present: supple, normal ROM - Respiratory Respiratory effort: normal Respiratory: bilateral: diminished, negative: rales, rhonchi, wheezing - Cardiovascular Rhythm: regular Heart Sounds: Present: S1 & S2 - Extremities Extremities: no ischemia, abnormal (Right thigh abscess) - Abdominal General gastrointestinal: soft, non-tender, non-distended, normal bowel sounds - Integumentary Integumentary: Present: clear, warm - Psychiatric Psychiatric: appropriate mood/affect, cooperative - Neurologic Neurologic: CNII-XII intact, moves all extremities Results - Labs CBC & Chem 7: 06/16/20 11:39 06/14/20 09:42 Labs: Laboratory Last Values WBC 22.7 K/mm3 (4.5-11.0) H 06/13/20 16:00 RBC 5.50 M/mm3 (3.65-5.03) H 06/13/20 16:00 Hgb 13.2 gm/dl (11.8-15.2) 06/13/20 16:00 Hct 40.9 % (35.5-45.6) 06/13/20 16:00 MCV 74 fl (84-94) L 06/13/20 16:00 MCH 24 pg (28-32) L 06/13/20 16:00 MCHC 32 % (32-34) 06/13/20 16:00 RDW 14.4 % (13.2-15.2) 06/13/20 16:00 Plt Count 371 K/mm3 (140-440) 06/13/20 16:00 Add Manual Diff Complete 06/13/20 16:00 Total Counted 100 06/13/20 16:00 Seg Neuts % (Manual) 86.0 % (40.0-70.0) H 06/13/20 16:00 Band Neutrophils % 0 % 06/13/20 16:00 Lymphocytes % (Manual) 6.0 % (13.4-35.0) L 06/13/20 16:00 Reactive Lymphs % (Man) 0 % 06/13/20 16:00 Monocytes % (Manual) 8.0 % (0.0-7.3) H 06/13/20 16:00 Eosinophils % (Manual) 0 % (0.0-4.3) 06/13/20 16:00 Basophils % (Manual) 0 % (0.0-1.8) 06/13/20 16:00 Metamyelocytes % 0 % 06/13/20 16:00 Myelocytes % 0 % 06/13/20 16:00 Promyelocytes % 0 % 06/13/20 16:00 Blast Cells % 0 % 06/13/20 16:00 Nucleated RBC % Not Reportable 06/13/20 16:00 Seg Neutrophils # Man 19.5 K/mm3 (1.8-7.7) H 06/13/20 16:00 Band Neutrophils # 0.0 K/mm3 06/13/20 16:00 Lymphocytes # (Manual) 1.4 K/mm3 (1.2-5.4) 06/13/20 16:00 Abs React Lymphs (Man) 0.0 K/mm3 06/13/20 16:00 Monocytes # (Manual) 1.8 K/mm3 (0.0-0.8) H 06/13/20 16:00 Eosinophils # (Manual) 0.0 K/mm3 (0.0-0.4) 06/13/20 16:00 Basophils # (Manual) 0.0 K/mm3 (0.0-0.1) 06/13/20 16:00 Metamyelocytes # 0.0 K/mm3 06/13/20 16:00 Myelocytes # 0.0 K/mm3 06/13/20 16:00 Promyelocytes # 0.0 K/mm3 06/13/20 16:00 Blast Cells # 0.0 K/mm3 06/13/20 16:00 WBC Morphology Not Reportable 06/13/20 16:00 Hypersegmented Neuts Not Reportable 06/13/20 16:00 Hyposegmented Neuts Not Reportable 06/13/20 16:00 Hypogranular Neuts Not Reportable 06/13/20 16:00 Smudge Cells Not Reportable 06/13/20 16:00 Toxic Granulation Not Reportable 06/13/20 16:00 Toxic Vacuolation Not Reportable 06/13/20 16:00 Dohle Bodies Not Reportable 06/13/20 16:00 Pelger-Huet Anomaly Not Reportable 06/13/20 16:00 Nancy Rods Not Reportable 06/13/20 16:00 Platelet Estimate Not Reportable 06/13/20 16:00 Clumped Platelets Not Reportable 06/13/20 16:00 Plt Clumps, EDTA Not Reportable 06/13/20 16:00 Large Platelets Not Reportable 06/13/20 16:00 Giant Platelets Not Reportable 06/13/20 16:00 Platelet Satelliting Not Reportable 06/13/20 16:00 Plt Morphology Comment Not Reportable 06/13/20 16:00 RBC Morphology Not Reportable 06/13/20 16:00 Dimorphic RBCs Not Reportable 06/13/20 16:00 Polychromasia Not Reportable 06/13/20 16:00 Hypochromasia 1+ 06/13/20 16:00 Poikilocytosis Not Reportable 06/13/20 16:00 Anisocytosis Few 06/13/20 16:00 Microcytosis Not Reportable 06/13/20 16:00 Macrocytosis Not Reportable 06/13/20 16:00 Spherocytes Not Reportable 06/13/20 16:00 Pappenheimer Bodies Not Reportable 06/13/20 16:00 Sickle Cells Not Reportable 06/13/20 16:00 Target Cells Not Reportable 06/13/20 16:00 Tear Drop Cells Not Reportable 06/13/20 16:00 Ovalocytes Not Reportable 06/13/20 16:00 Helmet Cells Not Reportable 06/13/20 16:00 [place] Bodies Not Reportable 06/13/20 16:00 [place] Rings Not Reportable 06/13/20 16:00 [place] Cells Not Reportable 06/13/20 16:00 Bite Cells Not Reportable 06/13/20 16:00 Crenated Cell Not Reportable 06/13/20 16:00 Elliptocytes Not Reportable 06/13/20 16:00 Acanthocytes (Spur) Not Reportable 06/13/20 16:00 Rouleaux Not Reportable 06/13/20 16:00 Hemoglobin C Crystals Not Reportable 06/13/20 16:00 Schistocytes Not Reportable 06/13/20 16:00 Malaria parasites Not Reportable 06/13/20 16:00 Jamar Bodies Not Reportable 06/13/20 16:00 Hem Pathologist Commnt No 06/13/20 16:00 PT 14.7 Sec. (12.2-14.9) 06/13/20 16:00 INR 1.13 (0.87-1.13) 06/13/20 16:00 APTT 28.0 Sec. (24.2-36.6) 06/13/20 16:00 VBG pH 7.340 (7.320-7.420) 06/13/20 16:00 Sodium 146 mmol/L (137-145) H 06/14/20 09:42 Potassium 4.0 mmol/L (3.6-5.0) 06/14/20 09:42 Chloride 106.6 mmol/L (98-107) 06/14/20 09:42 Carbon Dioxide 25 mmol/L (22-30) 06/14/20 09:42 Anion Gap 18 mmol/L 06/14/20 09:42 BUN 32 mg/dL (9-20) H 06/14/20 09:42 Creatinine 1.0 mg/dL (0.8-1.3) 06/14/20 09:42 Estimated GFR > 60 ml/min 06/14/20 09:42 BUN/Creatinine Ratio 32 % 06/14/20 09:42 Glucose 252 mg/dL (75-100) H 06/14/20 09:42 POC Glucose 284 mg/dL (70-105) H 06/16/20 07:58 Hemoglobin A1c 16.3 % (4-6) H 06/13/20 17:28 Calcium 9.5 mg/dL (8.4-10.2) 06/14/20 09:42 Phosphorus 4.90 mg/dL (2.5-4.5) H 06/13/20 17:28 Magnesium 2.50 mg/dL (1.7-2.3) H 06/13/20 17:28 Magnesium 2.60 mg/dL (1.7-2.3) H 06/13/20 17:28 Total Bilirubin 0.40 mg/dL (0.1-1.2) 06/13/20 16:00 AST 9 units/L (5-40) 06/13/20 16:00 ALT 19 units/L (7-56) 06/13/20 16:00 Alkaline Phosphatase 210 units/L (35-129) H 06/13/20 16:00 Total Creatine Kinase 30 units/L (55-170) L 06/13/20 17:28 Total Protein 9.3 g/dL (6.3-8.2) H 06/13/20 16:00 Albumin 3.8 g/dL (3.9-5) L 06/13/20 16:00 Albumin/Globulin Ratio 0.7 % 06/13/20 16:00 TSH 0.726 mlU/mL (0.270-4.200) 06/13/20 17:28 Urine Color Yellow (Yellow) 06/13/20 Unknown Urine Turbidity Clear (Clear) 06/13/20 Unknown Urine pH 5.0 (5.0-7.0) 06/13/20 Unknown Ur Specific [place] 1.024 (1.003-1.030) 06/13/20 Unknown Urine Protein 30 mg/dl mg/dL (Negative) 06/13/20 Unknown Urine Glucose (UA) >=500 mg/dL (Negative) 06/13/20 Unknown Urine Ketones 80 mg/dL (Negative) 06/13/20 Unknown Urine Blood Sm (Negative) 06/13/20 Unknown Urine Nitrite Neg (Negative) 06/13/20 Unknown Urine Bilirubin Neg (Negative) 06/13/20 Unknown Urine Urobilinogen 2.0 mg/dL (<2.0) 06/13/20 Unknown Ur Leukocyte Esterase Neg (Negative) 06/13/20 Unknown Urine WBC (Auto) < 1.0 /HPF (0.0-6.0) 06/13/20 Unknown Urine RBC (Auto) 1.0 /HPF (0.0-6.0) 06/13/20 Unknown U Epithel Cells (Auto) < 1.0 /HPF (0-13.0) 06/13/20 Unknown Microbiology: Microbiology 06/15/20 19:22 Peripheral/Venous Blood Culture - Preliminary Culture in Progress 06/15/20 19:22 Peripheral/Venous Blood Culture - Preliminary Culture in Progress Palomares/IV: Voiding Method Toilet IV Catheter Type [Left Forearm INT / Saline Lock ] Active Medications - Current Medications Current Medications: Generic Name Dose Route Start Last Admin Trade Name Freq PRN Reason Stop Dose Admin Dextrose 0 ml 06/13/20 17:17 D50w (25gm) Syringe IV Q30MIN PRN Hypoglycemia Protocol Heparin Sodium (Porcine) 5,000 unit 06/13/20 22:00 06/15/20 21:14 Heparin SUB-Q Not Given Q12HR [facility] Hydralazine HCl 50 mg 06/14/20 15:00 06/16/20 06:46 Apresoline PO Not Given Q8HR [facility] Sodium Chloride 1,000 mls @ 150 mls/hr 06/13/20 17:30 06/15/20 20:50 Nacl 0.9% 1000 Ml IV 150 mls/hr DIRECT [facility] Administration Piperacillin Sod/Tazobactam Sod 4.5 gm in 100 mls @ 200 mls/hr 06/15/20 18:00 06/16/20 03:45 Zosyn/Ns 4.5gm/100ml IV 200 mls/hr Q8H [facility] Administration Protocol Vancomycin HCl 2,000 mg/ 540 mls @ 250 mls/hr 06/15/20 20:00 06/16/20 03:44 Sodium Chloride IV 250 mls/hr Q8H [facility] Administration Insulin Human Isoph/Insulin Regular 30 unit 06/15/20 17:00 06/16/20 08:33 Humulin 70/30 SUB-Q Not Given BIDDIAB [facility] Insulin Human Lispro 0 unit 06/14/20 12:00 06/16/20 08:36 Humalog SUB-Q 4 unit ACHS [facility] Administration Protocol Labetalol HCl 10 mg 06/14/20 18:03 06/15/20 19:04 Labetalol IV 10 mg Q4H PRN Administration Hypertension Lorazepam 1 mg 06/13/20 22:54 Ativan IM Q4H PRN Agitation, anxiety Nicotine 21 mg 06/13/20 23:30 06/15/20 09:46 Habitrol TD Not Given QDAY [facility] Nifedipine 30 mg 06/14/20 22:00 06/15/20 21:06 Procardia Xl PO 30 mg Q12HR [facility] Administration Ondansetron HCl 4 mg 06/14/20 08:03 06/15/20 20:21 Zofran IV 4 mg Q8H PRN Administration Nausea And Vomiting Sodium Chloride 10 ml 06/13/20 22:00 06/15/20 21:06 Sodium Chloride Flush Syringe 10 Ml IV 10 ml BID [facility] Administration Sodium Chloride 10 ml 06/13/20 17:30 Sodium Chloride Flush Syringe 10 Ml IV PRN PRN LINE FLUSH
[2020-06-16] MEDS ORDERED: VANCOMYCIN/NS 1 GM/250 ML 1 GM/250 ML BAG IV SCH (10:00)
[2020-06-16] MEDS ORDERED: VANCOMYCIN PHARMACY TO DOSE IV SCH (10:00)
[2020-06-16] MEDS: HEPARIN 5,000 UNIT/1 ML VIAL SUB-Q SCH ×2 (10:05→22:54)
[2020-06-16] MEDS: NIFEdipine XL 30 MG TAB PO SCH ×2 (10:53→22:55)
[2020-06-16 12:28] LABS: Hematocrit 37.8 % (35.5-45.6); Hemoglobin 11.8 gm/dl (11.8-15.2); Mean Corpuscular HGB Conc 31 % (32-34); Mean Corpuscular Volume 74 fl (84-94); Platelet Count 379 K/mm3 (140-440); Red Blood Count 5.15 M/mm3 (3.65-5.03); Red Cell Distribution Width 14.3 % (13.2-15.2)
[2020-06-16] MEDS ORDERED: INSULIN LISPRO 100 UNIT/ML VIAL 3 mL SUB-Q ONE (13:00)
--- NOTE | 2020-06-16 13:13 | Anesthesia Day of Surgery ---
Anesthesia Day of Surgery - Day of Surgery Patient Examined: Yes Patient H&P Reviewed: Yes Patient is NPO: Yes
[2020-06-16] MEDS: SODIUM CHLORIDE 0.9% 1000 ML 1,000 ML IV SCH ×2 (13:15→15:07)
[2020-06-16] MEDS ORDERED: BUPIVACAINE/PF (0.25%) 2.5 MG/ML 30 ML VIAL INFILTRATI ONE ×2 (13:16→13:35)
[2020-06-16] MEDS ORDERED: LIDOCAINE (1%) 10 MG/1 ML VIAL 20 ML MDV ONE (13:16)
--- NOTE | 2020-06-16 13:16 | Anesthesia Consultation ---
Anesthesia Consult and Med Hx Date of service: 06/16/20 - Airway Anesthetic Teeth Evaluation: Chipped Mallampati Class: Class IV Intubation Access Assessment: Possibly Difficult - Pre-Operative Health Status ASA Pre-Surgery Classification: ASA3 Proposed Anesthetic Plan: MAC (Pt refuses GA) - Pulmonary Hx Smoking: Yes - Cardiovascular System Hx Hypertension: Yes - Gastrointestinal Hx Gastroesophageal Reflux Disease: Yes - Endocrine Hx Insulin Dependent Diabetes: Yes - Hematic Hx Sickle Cell Disease: No - Other Systems Hx Substance Use: Yes (MJ) Hx Obesity: Yes
[2020-06-16] MEDS ORDERED: SODIUM CHLORIDE 0.9% IRR 1,500 ML BOTTLE IR ONE (13:46)
--- NOTE | 2020-06-16 14:14 | Procedure Note ---
Date of procedure: 06/16/20 Pre-op diagnosis: Right thigh abscess Post-op diagnosis: same Procedure: I&D of right thigh abscess Description of procedure: Pt was placed supine on the OR table and frog legged. Right medial thigh was prepped and draped. Skin and SQ tissue about the u lcerated area were infiltrated with 4 ml of 0.25% Marcaine with epinephrine. The ulcerated area was then excised resulting in drainage of pus which was cultured. Additional Marcaine (6 ml) was injected over the unroofed areas of the abscess cavity. The abscess cavity was completely unroofed with the Bovie. Necrotic SQ tissue was excised with forceps and scissors. Wound was irrigated with warm saline. Wound was packed open with a dilute Betadine moistened Kerlix roll followed by an ABD and tape. Pt tolerated the procedure well. Anesthesia: local Surgeon: ANAYA NUNEZ Estimated blood loss: minimal Pathology: list (C&S) Specimen disposition: to lab Condition: stable Disposition: PACU
[2020-06-16 14:39] LABS: Band Neutrophils # (Manual) 0.4 K/mm3; Basophils % (Manual) 0 % (0.0-1.8); Eosinophils % (Manual) 0 % (0.0-4.3); Hypochromasia Few; Platelet Clumps Rare; Platelet Estimate Consistent w Auto; Total Cells Counted 100
--- NOTE | 2020-06-16 16:54 | Post Anesthesia Evaluation ---
- Post Anesthesia Evaluation Patient Participated: Yes Airway Patent: Yes Stable Respiratory Function: Yes Nausea/Vomiting: No Temp > 96.8F: Yes Pain Manageable: Yes Adequeate Hydration: Yes Anesthesia Complications: No Block Receding Appropriately: Not Applicable Patient on Ventilator: No Other Comments: Pt refused GA/Sedation. Anes was in the OR to monitor the patient and be available should he change his mind intraop.
[2020-06-17] MEDS: PIPERACIL/TAZOBACTA 4.5/NS 100 4.5 GM/100 ML VIAL IV SCH (01:09)
[2020-06-17] MEDS: ONDANSETRON 4 MG/2 ML INJ IV PRN (01:16)
[2020-06-17 05:31] LABS: Hematocrit 36.1 % (35.5-45.6); Hemoglobin 11.5 gm/dl (11.8-15.2); Mean Corpuscular HGB Conc 32 % (32-34); Mean Corpuscular Volume 73 fl (84-94); Platelet Count 364 K/mm3 (140-440); Red Blood Count 4.93 M/mm3 (3.65-5.03); Red Cell Distribution Width 13.8 % (13.2-15.2)
[2020-06-17 05:42] LABS: Calcium 8.9 mg/dL (8.4-10.2)
[2020-06-17] MEDS: hydrALAZINE 25 MG TAB PO SCH ×2 (05:52→14:47)
[2020-06-17] MEDS: VANCOMYCIN 2,000 MG in SODIUM CHLORIDE 0.9% 500 ML 500 ML IV SCH (05:53)
[2020-06-17 06:42] LABS: Band Neutrophils # (Manual) 0.6 K/mm3; Basophils % (Manual) 0 % (0.0-1.8); Total Cells Counted 100
[2020-06-17 06:43] LABS: Anisocytosis 1+; Hypochromasia 1+; Platelet Estimate Consistent w Auto; Toxic Granulation 1+
[2020-06-17] MEDS: NICOTINE 21 MG/24 HR PATCH TD SCH (09:44)
[2020-06-17] MEDS: NIFEdipine XL 30 MG TAB PO SCH (09:44)
[2020-06-17] MEDS: HEPARIN 5,000 UNIT/1 ML VIAL SUB-Q SCH (09:44)
[2020-06-17] MEDS: INSULIN LISPRO 100 UNIT/ML VIAL 3 mL SUB-Q SCH ×2 (09:44→12:36)
[2020-06-17] MEDS: INSULIN NPH/REGULAR 70/30 INJ SUB-Q SCH (09:44)
--- NOTE | 2020-06-17 10:25 | Progress Note ---
Assessment and Plan Assessment and plan: --Right thigh abscess; Surgery and wound care evaluated the patient S/p incision drainage and debridement 06/16/2020 Continue antibiotics vancomycin and Zosyn Follow cultures, wound care, surgery recommendations --Sepsis due to right thigh abscess Current Visit: No Status: Acute . Plan to address problem: Leukocytosis, tachycardia, abscess Continue antibiotics, follow cultures ID consult --Leukocytosis; secondary to sepsis, trending down Continue to treat with IV antibiotics and supportive care --Insulin-dependent diabetes mellitus; moderate control Current Visit: No Status: Acute . Plan to address problem: I will increase Novolin 70/30 dose to 35 units twice a day Accu-Chek sliding scale coverage ADA diet Hemoglobin A1c 16.3 Diabetic education, nutrition education Supportive care --Medical noncompliance; Current Visit: No Status: Acute . Plan to address problem: Patient has been consuming a lot of sugary fruit juices He reports that he is not able to tolerate the water Blood sugars are very high uncontrolled due to sugary drinks Strongly advised to comply with ADA diet -- s/p DKA (diabetic ketoacidoses) Current Visit: No Status: Acute . Plan to address problem: Improved -- Metabolic acidosis Current Visit: Yes Status: Acute Plan to address problem: IV fluid resuscitation therapy, IV bicarbonate therapy, Closely monitor --Hyponatremia; pseudohyponatremia; Current Visit: Yes Status: Acute Plan to address problem: Resolved, sodium levels within the range --Morbid obesity BMI 42.3 Current Visit: Yes Status: Acute Plan to address problem: Patient needs nutrition consult Lifestyle changes, dietary modification Exercise as tolerated and weight reduction Patient would benefit from outpatient bariatric surgical consultation For weight reduction program when medically stable --Medical noncompliance Current Visit: No Status: Acute Plan to address problem: patient counseled. Strongly advised to comply with medications diet and follow- up visits Patient has social and financial issues. Case management to assist with DC planning -- DVT prophylaxis Current Visit: Yes Status: Acute Plan to address problem: SCD and heparin subcu Closely monitor the patient and adjust management as needed Follow wound care surgeon, wound care recommendation Follow-up ID evaluation and recommendations Plan of care reviewed with the patient and his nurse History Interval history: I have seen and examined the patient at the bedside Patient's chart and medications reviewed Patient sugars are uncontrolled partly due to chronic noncompliance with medications Patient takes a lot of sugary fruit juices and due to sepsis [thigh abscess] Patient is anxious to go home Vital signs noted Hospitalist Physical - Constitutional Vitals: Temp Pulse Resp BP Pulse Ox 98.1 F 102 H 18 178/108 96 06/17/20 06:27 06/17/20 06:58 06/17/20 06:58 06/17/20 05:52 06/17/20 06:58 General appearance: Present: no acute distress, well-nourished, obese (Morbidly obese) - EENT Eyes: Present: PERRL, EOM intact - Neck Neck: Present: supple, normal ROM - Respiratory Respiratory effort: normal Respiratory: bilateral: diminished, negative: rales, rhonchi, wheezing - Cardiovascular Rhythm: regular Heart Sounds: Present: S1 & S2 - Extremities Extremities: no ischemia, abnormal (Thigh dressing in place) - Abdominal General gastrointestinal: soft, non-tender, non-distended, normal bowel sounds - Integumentary Integumentary: Present: clear, warm - Psychiatric Psychiatric: appropriate mood/affect, cooperative - Neurologic Neurologic: CNII-XII intact, moves all extremities Results - Labs CBC & Chem 7: 06/17/20 04:12 06/17/20 04:12 Labs: Laboratory Last Values WBC 12.6 K/mm3 (4.5-11.0) H 06/17/20 04:12 RBC 4.93 M/mm3 (3.65-5.03) 06/17/20 04:12 Hgb 11.5 gm/dl (11.8-15.2) L 06/17/20 04:12 Hct 36.1 % (35.5-45.6) 06/17/20 04:12 MCV 73 fl (84-94) L 06/17/20 04:12 MCH 23 pg (28-32) L 06/17/20 04:12 MCHC 32 % (32-34) 06/17/20 04:12 RDW 13.8 % (13.2-15.2) 06/17/20 04:12 Plt Count 364 K/mm3 (140-440) 06/17/20 04:12 Add Manual Diff Complete 06/17/20 04:12 Total Counted 100 06/17/20 04:12 Seg Neuts % (Manual) 73.0 % (40.0-70.0) H 06/17/20 04:12 Band Neutrophils % 5.0 % 06/17/20 04:12 Lymphocytes % (Manual) 14.0 % (13.4-35.0) 06/17/20 04:12 Reactive Lymphs % (Man) 0 % 06/17/20 04:12 Monocytes % (Manual) 7.0 % (0.0-7.3) 06/17/20 04:12 Eosinophils % (Manual) 1.0 % (0.0-4.3) 06/17/20 04:12 Basophils % (Manual) 0 % (0.0-1.8) 06/17/20 04:12 Metamyelocytes % 0 % 06/17/20 04:12 Myelocytes % 0 % 06/17/20 04:12 Promyelocytes % 0 % 06/17/20 04:12 Blast Cells % 0 % 06/17/20 04:12 Nucleated RBC % Not Reportable 06/17/20 04:12 Seg Neutrophils # Man 9.2 K/mm3 (1.8-7.7) H 06/17/20 04:12 Band Neutrophils # 0.6 K/mm3 06/17/20 04:12 Lymphocytes # (Manual) 1.8 K/mm3 (1.2-5.4) 06/17/20 04:12 Abs React Lymphs (Man) 0.0 K/mm3 06/17/20 04:12 Monocytes # (Manual) 0.9 K/mm3 (0.0-0.8) H 06/17/20 04:12 Eosinophils # (Manual) 0.1 K/mm3 (0.0-0.4) 06/17/20 04:12 Basophils # (Manual) 0.0 K/mm3 (0.0-0.1) 06/17/20 04:12 Metamyelocytes # 0.0 K/mm3 06/17/20 04:12 Myelocytes # 0.0 K/mm3 06/17/20 04:12 Promyelocytes # 0.0 K/mm3 06/17/20 04:12 Blast Cells # 0.0 K/mm3 06/17/20 04:12 WBC Morphology Not Reportable 06/17/20 04:12 Hypersegmented Neuts Not Reportable 06/17/20 04:12 Hyposegmented Neuts Not Reportable 06/17/20 04:12 Hypogranular Neuts Not Reportable 06/17/20 04:12 Smudge Cells Not Reportable 06/17/20 04:12 Toxic Granulation 1+ 06/17/20 04:12 Toxic Vacuolation Not Reportable 06/17/20 04:12 Dohle Bodies Not Reportable 06/17/20 04:12 Pelger-Huet Anomaly Not Reportable 06/17/20 04:12 Nancy Rods Not Reportable 06/17/20 04:12 Platelet Estimate Consistent w auto 06/17/20 04:12 Clumped Platelets Not Reportable 06/17/20 04:12 Plt Clumps, EDTA Not Reportable 06/17/20 04:12 Large Platelets Not Reportable 06/17/20 04:12 Giant Platelets Not Reportable 06/17/20 04:12 Platelet Satelliting Not Reportable 06/17/20 04:12 Plt Morphology Comment Not Reportable 06/17/20 04:12 RBC Morphology Not Reportable 06/17/20 04:12 Dimorphic RBCs Not Reportable 06/17/20 04:12 Polychromasia Not Reportable 06/17/20 04:12 Hypochromasia 1+ 06/17/20 04:12 Poikilocytosis Not Reportable 06/17/20 04:12 Anisocytosis 1+ 06/17/20 04:12 Microcytosis Not Reportable 06/17/20 04:12 Macrocytosis Not Reportable 06/17/20 04:12 Spherocytes Not Reportable 06/17/20 04:12 Pappenheimer Bodies Not Reportable 06/17/20 04:12 Sickle Cells Not Reportable 06/17/20 04:12 Target Cells Not Reportable 06/17/20 04:12 Tear Drop Cells Not Reportable 06/17/20 04:12 Ovalocytes Not Reportable 06/17/20 04:12 Helmet Cells Not Reportable 06/17/20 04:12 [place] Bodies Not Reportable 06/17/20 04:12 [place] Rings Not Reportable 06/17/20 04:12 [place] Cells Not Reportable 06/17/20 04:12 Bite Cells Not Reportable 06/17/20 04:12 Crenated Cell Not Reportable 06/17/20 04:12 Elliptocytes Not Reportable 06/17/20 04:12 Acanthocytes (Spur) Not Reportable 06/17/20 04:12 Rouleaux Not Reportable 06/17/20 04:12 Hemoglobin C Crystals Not Reportable 06/17/20 04:12 Schistocytes Not Reportable 06/17/20 04:12 Malaria parasites Not Reportable 06/17/20 04:12 Jamar Bodies Not Reportable 06/17/20 04:12 Hem Pathologist Commnt No 06/17/20 04:12 PT 14.7 Sec. (12.2-14.9) 06/13/20 16:00 INR 1.13 (0.87-1.13) 06/13/20 16:00 APTT 28.0 Sec. (24.2-36.6) 06/13/20 16:00 VBG pH 7.340 (7.320-7.420) 06/13/20 16:00 Sodium 137 mmol/L (137-145) D 06/17/20 04:12 Potassium 3.7 mmol/L (3.6-5.0) 06/17/20 04:12 Chloride 98.4 mmol/L (98-107) 06/17/20 04:12 Carbon Dioxide 23 mmol/L (22-30) 06/17/20 04:12 Anion Gap 19 mmol/L 06/17/20 04:12 BUN 21 mg/dL (9-20) H 06/17/20 04:12 Creatinine 2.6 mg/dL (0.8-1.3) H D 06/17/20 04:12 Estimated GFR 35 ml/min 06/17/20 04:12 BUN/Creatinine Ratio 8 % 06/17/20 04:12 Glucose 278 mg/dL (75-100) H 06/17/20 04:12 POC Glucose 318 mg/dL (70-105) H 06/17/20 07:52 Hemoglobin A1c 16.3 % (4-6) H 06/13/20 17:28 Calcium 8.9 mg/dL (8.4-10.2) 06/17/20 04:12 Phosphorus 4.90 mg/dL (2.5-4.5) H 06/13/20 17:28 Magnesium 2.50 mg/dL (1.7-2.3) H 06/13/20 17:28 Magnesium 2.60 mg/dL (1.7-2.3) H 06/13/20 17:28 Total Bilirubin 0.40 mg/dL (0.1-1.2) 06/13/20 16:00 AST 9 units/L (5-40) 06/13/20 16:00 ALT 19 units/L (7-56) 06/13/20 16:00 Alkaline Phosphatase 210 units/L (35-129) H 06/13/20 16:00 Total Creatine Kinase 30 units/L (55-170) L 06/13/20 17:28 Total Protein 9.3 g/dL (6.3-8.2) H 06/13/20 16:00 Albumin 3.8 g/dL (3.9-5) L 06/13/20 16:00 Albumin/Globulin Ratio 0.7 % 06/13/20 16:00 TSH 0.726 mlU/mL (0.270-4.200) 06/13/20 17:28 Urine Color Yellow (Yellow) 06/13/20 Unknown Urine Turbidity Clear (Clear) 06/13/20 Unknown Urine pH 5.0 (5.0-7.0) 06/13/20 Unknown Ur Specific [place] 1.024 (1.003-1.030) 06/13/20 Unknown Urine Protein 30 mg/dl mg/dL (Negative) 06/13/20 Unknown Urine Glucose (UA) >=500 mg/dL (Negative) 06/13/20 Unknown Urine Ketones 80 mg/dL (Negative) 06/13/20 Unknown Urine Blood Sm (Negative) 06/13/20 Unknown Urine Nitrite Neg (Negative) 06/13/20 Unknown Urine Bilirubin Neg (Negative) 06/13/20 Unknown Urine Urobilinogen 2.0 mg/dL (<2.0) 06/13/20 Unknown Ur Leukocyte Esterase Neg (Negative) 06/13/20 Unknown Urine WBC (Auto) < 1.0 /HPF (0.0-6.0) 06/13/20 Unknown Urine RBC (Auto) 1.0 /HPF (0.0-6.0) 06/13/20 Unknown U Epithel Cells (Auto) < 1.0 /HPF (0-13.0) 06/13/20 Unknown Vancomycin Trough 47.5 ug/mL (5.0-20.0) H 06/17/20 04:12 Microbiology: Microbiology 06/15/20 19:22 Peripheral/Venous Blood Culture - Preliminary NO GROWTH AFTER 24 HOURS 06/15/20 19:22 Peripheral/Venous Blood Culture - Preliminary NO GROWTH AFTER 24 HOURS Palomares/IV: Voiding Method Toilet IV Catheter Type [Left Forearm INT / Saline Lock ] Active Medications - Current Medications Current Medications: Generic Name Dose Route Start Last Admin Trade Name Freq PRN Reason Stop Dose Admin Dextrose 0 ml 06/13/20 17:17 D50w (25gm) Syringe IV Q30MIN PRN Hypoglycemia Protocol Heparin Sodium (Porcine) 5,000 unit 06/13/20 22:00 06/17/20 09:44 Heparin SUB-Q 5,000 unit Q12HR [facility]BY Administration Hydralazine HCl 50 mg 06/14/20 15:00 06/17/20 05:52 Apresoline PO 50 mg Q8HR [facility]BY Administration Piperacillin Sod/Tazobactam Sod 2.25 gm in 50 mls @ 100 mls/hr 06/17/20 14:00 Zosyn/Ns 2.25 Gm/50ml IV Q8HR [facility] Protocol Insulin Human Isoph/Insulin Regular 30 unit 06/15/20 17:00 06/17/20 09:44 Humulin 70/30 SUB-Q 30 unit BIDDIAB CORBY Administration Insulin Human Lispro 0 unit 06/14/20 12:00 06/17/20 09:44 Humalog SUB-Q 6 unit ACHS CORBY Administration Protocol Labetalol HCl 10 mg 06/14/20 18:03 06/15/20 19:04 Labetalol IV 10 mg Q4H PRN Administration Hypertension Lorazepam 1 mg 06/13/20 22:54 Ativan IM Q4H PRN Agitation, anxiety Nicotine 21 mg 06/13/20 23:30 06/17/20 09:44 Habitrol TD Not Given QDAY CORBY Nifedipine 30 mg 06/14/20 22:00 06/17/20 09:44 Procardia Xl PO 30 mg Q12HR [facility] Administration Ondansetron HCl 4 mg 06/14/20 08:03 06/17/20 01:16 Zofran IV 4 mg Q8H PRN Administration Nausea And Vomiting Sodium Chloride 10 ml 06/13/20 22:00 06/17/20 09:45 Sodium Chloride Flush Syringe 10 Ml IV 10 ml BID [facility]BY Administration Sodium Chloride 10 ml 10/19/20 17:30 Sodium Chloride Flush Syringe 10 Ml IV PRN PRN LINE FLUSH
[2020-06-17] MEDS ORDERED: INSULIN NPH/REGULAR 70/30 INJ SUB-Q SCH (11:00)
--- NOTE | 2020-06-17 12:22 | Consultation ---
History of Present Illness - Reason for Consult Consult date: 06/17/20 - History of Present Illness 29-year-old man past medical history diabetes poorly controlled, gastroparesis admitted to the hospital with general feelings of being unwell for 2 to 3 days prior to admission. He notes the symptoms began worsening on the day prior to admission. He complained of nausea, vomiting, weakness. He was found to be in DKA on admission he otherwise denied any fevers, sweats, chills. His DKA res olved, and he was transferred out of the ICU. He was noted to have a right thigh abscess, and was taken to the OR on 06/16/2020 for an I&D with Dr. Taylor. Cultures from the abscess were taken, which are currently pending. Afebrile since admission with a white count of 13. Currently on Vanco and Zosyn. Blood cultures and wound cultures are currently pending. Imaging personally reviewed: Chest x-ray: No acute abnormality. Review of Systems: Bold if positive, otherwise negative General: fevers, chills, rigors HEENT: visual disturbance, diplopia, eye pain Respiratory: cough, sputum, hemoptysis, shortness of breath Cardiovascular: chest pain, syncope Gastrointestinal: nausea, vomiting, diarrhea, abdominal pain Genitourinary: dysuria, hematuria, flank pain Musculoskeletal: neck pain, back pain, joint pain, edema Neurologic: headaches, seizures Hematologic: easy bruising or bleeding Endocrine: night sweats, acute weight loss Skin: rash, jaundice, redness Psychiatric: suicidal, homicidal ideation Past History Past Medical History: diabetes Past Surgical History: No surgical history, Other (Reviewed) Social history: single. denies: smoking, alcohol abuse, prescription drug abuse Family history: diabetes, hypertension Medications and Allergies Allergies Allergy/AdvReac Type Severity Reaction Status Date / Time No Known Allergies Allergy Unverified 06/13/20 15:53 Home Medications Medication Instructions Recorded Confirmed Last Taken Type Metformin HCl 500 mg PO BID 06/14/20 06/14/20 Unknown History Active Meds: Active Medications Dextrose (D50w (25gm) Syringe) 0 ml IV Q30MIN PRN; Protocol PRN Reason: Hypoglycemia Heparin Sodium (Porcine) (Heparin) 5,000 unit SUB-Q Q12HR CORBY Last Admin: 06/17/20 09:44 Dose: 5,000 unit Documented by: Hydralazine HCl (Apresoline) 50 mg PO Q8HR [facility] Last Admin: 06/17/20 05:52 Dose: 50 mg Documented by: Piperacillin Sod/Tazobactam Sod (Zosyn/Ns 2.25 Gm/50ml) 2.25 gm in 50 mls @ 100 mls/hr IV Q8HR [facility]; Protocol Insulin Human Isoph/Insulin Regular (Humulin 70/30) 35 unit SUB-Q BIDDIAB [facility] Insulin Human Lispro (Humalog) 0 unit SUB-Q ACHS [facility]; Protocol Last Admin: 06/17/20 09:44 Dose: 6 unit Documented by: Labetalol HCl (Labetalol) 10 mg IV Q4H PRN PRN Reason: Hypertension Last Admin: 06/15/20 19:04 Dose: 10 mg Documented by: Lorazepam (Ativan) 1 mg IM Q4H PRN PRN Reason: Agitation, anxiety Nicotine (Habitrol) 21 mg TD QDAY [facility] Last Admin: 06/17/20 09:44 Dose: Not Given Documented by: Nifedipine (Procardia Xl) 30 mg PO Q12HR [facility] Last Admin: 06/17/20 09:44 Dose: 30 mg Documented by: Ondansetron HCl (Zofran) 4 mg IV Q8H PRN PRN Reason: Nausea And Vomiting Last Admin: 06/17/20 01:16 Dose: 4 mg Documented by: Sodium Chloride (Sodium Chloride Flush Syringe 10 Ml) 10 ml IV BID [facility] Last Admin: 06/17/20 09:45 Dose: 10 ml Documented by: Sodium Chloride (Sodium Chloride Flush Syringe 10 Ml) 10 ml IV PRN PRN PRN Reason: LINE FLUSH Physical Examination - Physical Exam Narrative exam: Physical Exam: Constitutional: Alert, cooperative. No acute distress Head, Ears, Nose: Normocephalic, atraumatic. External ears, nose normal Eyes: Conjunctivae/corneas clear. No icterus. No ptosis. Neck: Supple, no meningeal signs Oral: dentition fair, no thrush Cardiovascular: S1, S2 normal. Respiratory: Good air entry, clear to auscultation bilaterally GI: Soft, non-tender; bowel sounds normal. No peritoneal signs. Musculoskeletal: No pedal edema, no cyanosis. Skin: Right thigh abscess site dressed, packed. Hem/Lymphatic: No palpable cervical or supraclavicular nodes. No lymphangitis Psych: Mood ok. Affect normal Neurological: Awake, alert, oriented. No gross abnormality - Constitutional Vitals: Vital Signs Temp Pulse Resp BP Pulse Ox 98.1 F 102 H 18 178/108 96 06/17/20 06:27 06/17/20 06:58 06/17/20 06:58 06/17/20 05:52 06/17/20 06:58 Temperature -Last 24 Hours Temperature 98.1 F Temperature 98.4 F Temperature 98.8 F Temperature 98.7 F Temperature 98.7 F Results - Labs CBC & Chem 7: 06/17/20 04:12 06/17/20 04:12 Labs: Abnormal lab results 06/16/20 06/16/20 06/16/20 Range/Units 11:39 12:57 17:02 WBC 13.8 H (4.5-11.0) K/mm3 RBC 5.15 H (3.65-5.03) M/mm3 Hgb (11.8-15.2) gm/dl MCV 74 L (84-94) fl MCH 23 L (28-32) pg MCHC 31 L (32-34) % Seg Neuts % (Manual) (40.0-70.0) % Seg Neutrophils # Man 9.7 H (1.8-7.7) K/mm3 Monocytes # (Manual) 1.0 H (0.0-0.8) K/mm3 BUN (9-20) mg/dL Creatinine (0.8-1.3) mg/dL Glucose (75-100) mg/dL POC Glucose 315 H 334 H (70-105) mg/dL Vancomycin Trough (5.0-20.0) ug/mL 06/16/20 06/17/20 06/17/20 Range/Units 23:35 04:12 04:12 WBC (4.5-11.0) K/mm3 RBC (3.65-5.03) M/mm3 Hgb (11.8-15.2) gm/dl MCV (84-94) fl MCH (28-32) pg MCHC (32-34) % Seg Neuts % (Manual) (40.0-70.0) % Seg Neutrophils # Man (1.8-7.7) K/mm3 Monocytes # (Manual) (0.0-0.8) K/mm3 BUN 21 H (9-20) mg/dL Creatinine 2.6 H D (0.8-1.3) mg/dL Glucose 278 H (75-100) mg/dL POC Glucose 211 H (70-105) mg/dL Vancomycin Trough 47.5 H (5.0-20.0) ug/mL 06/17/20 06/17/20 Range/Units 04:12 07:52 WBC 12.6 H (4.5-11.0) K/mm3 RBC (3.65-5.03) M/mm3 Hgb 11.5 L (11.8-15.2) gm/dl MCV 73 L (84-94) fl MCH 23 L (28-32) pg MCHC (32-34) % Seg Neuts % (Manual) 73.0 H (40.0-70.0) % Seg Neutrophils # Man 9.2 H (1.8-7.7) K/mm3 Monocytes # (Manual) 0.9 H (0.0-0.8) K/mm3 BUN (9-20) mg/dL Creatinine (0.8-1.3) mg/dL Glucose (75-100) mg/dL POC Glucose 318 H (70-105) mg/dL Vancomycin Trough (5.0-20.0) ug/mL Assessment and Plan Cultures: Blood culture 06/15/2020 pending Wound culture 06/15/2020 pending A/P: 29-year-old man past medical history poorly controlled diabetes admitted to the hospital in [facility], found to have a right thigh abscess. #Acute sepsis: Present with leukocytosis and tachycardia, secondary to right thigh abscess. #Right thigh abscess: Status post incision and drainage surgery. Cultures currently pending. #MEHDI on CKD: With supratherapeutic vancomycin troughs currently, DKA likely contributing. Renally dose antibiotics. #DKA: Resolving Recs: -Stop Zosyn -Continue vancomycin for now pending wound cultures -Follow renal function to ensure it is improving. Thank you for the consult, we will continue to follow. MD [facility] O: [phone] F: [phone]
[2020-06-17] MEDS ORDERED: PIPERACIL-TAZO 2.25 GM/50 ML 2.25 GM/50 ML BAG IV SCH (14:00)
[2020-06-17 14:17] VITALS: BP 156/102
--- NOTE | 2020-06-17 17:47 | Event Note ---
Date: 06/17/20 Patient did not want to stay in the hospital and continue the treatment Risks and consequences and complications of leaving AGAINST MEDICAL ADVICE in the middle of treatment Explained to the patient, patient verbalized understanding, signed the necessary papers and left AMA. Nurse and charge nurse are aware
--- NOTE | 2020-06-17 17:51 | Discharge Summary ---
Providers - Providers Date of Admission: 06/13/20 17:25 Date of discharge: 06/17/20 Attending physician: AYLIN VAZ 06/15/20 08:13 Consult to Wound/ET Nurse [CONS] Urgent Reason For Exam: wound eval to right inner thigh/glut fold 06/15/20 10:04 Consult to Physician [CONS] Routine Comment: Consulting Provider: ANAYA NUNEZ Physician Instructions: Reason For Exam: right medial thigh abcess. 06/17/20 10:27 Consult to Physician [CONS] Routine Comment: Consulting Provider: JIM JON Physician Instructions: Reason For Exam: Abscess right thigh Primary care physician: SAFETY TRAINER Hospitalization Condition: Fair Disposition: DC-07 LEFT AGAINST MED ADVICE Time spent for discharge: 32 min Exam - Constitutional Vitals: Temp Pulse Resp BP Pulse Ox 98.0 F 104 H 15 156/102 99 06/17/20 13:59 06/17/20 13:59 06/17/20 13:59 06/17/20 13:59 06/17/20 13:59 Plan Follow up with: PRIMARY MD KIRA [Primary Care Provider] - 3-5 Days
== END 2020-06-17 15:30 | disposition left against medical advice (07) | DRG 853 ==
LOC: ED 15:44 → CC1 17:25 → 3A 06-14 17:14
PROVIDERS: ADMIT Internal Medicine; ATTEND Internal Medicine
PROC: 0J9L0ZZ Drainage of Right Upper Leg Subcutaneous Tissue and Fascia, Open Approach (ICD-10-PCS; principal; 2020-06-16)
DX: A41.9 Sepsis, unspecified organism (principal); E11.10 Type 2 diabetes mellitus with ketoacidosis without coma; E66.2 Morbid (severe) obesity with alveolar hypoventilation; Z68.41 Body mass index [BMI] 40.0-44.9, adult; L02.415 Cutaneous abscess of right lower limb; N17.9 Acute kidney failure, unspecified; E87.1 Hypo-osmolality and hyponatremia; E11.43 Type 2 diabetes mellitus with diabetic autonomic (poly)neuropathy; E11.22 Type 2 diabetes mellitus with diabetic chronic kidney disease; N18.9 Chronic kidney disease, unspecified; K31.84 Gastroparesis; Z91.14 Patient's other noncompliance with medication regimen; Z83.3 Family history of diabetes mellitus; Z82.49 Family history of ischemic heart disease and other diseases of the circulatory system; Z79.899 Other long term (current) drug therapy; Z53.29 Procedure and treatment not carried out because of patient's decision for other reasons
CPT/HCPCS: 36415; 71045; 80048; 80053; 80202; 81001; 82550; 82805; 82962; 83036; 83735; 84100; 84443; 85007; 85025; 85610; 85730; 87040; 87075; 87116; 90471; 93005; 96365; 96375; G0378; J1644; J1815; J1956; J2405; J2543; J2765; J3370; J7030; J7040; Q0162